=== PATIENT | male | born 1995 | race Caucasian/White ===

== ENCOUNTER → 2022-01-05 13:10 | Outpatient (CLI) | payer OTHER, SELFPAY ==
--- NOTE | 2022-01-05 | DI.MRI.S_ITS ---
PROCEDURE: MR KNEE LT WO CON INDICATIONS: Magnetic Resonance Imaging TECHNIQUE: Noncontrast sagittal PD fast spin echo and T2 fast spin echo with fat saturation, sagittal 3-D FLASH with fat saturation; coronal T1 spin echo and PD fast spin echo with fat saturation, and axial PD fast spin echo with fat saturation through the knee. COMPARISON: None. FINDINGS: Image quality: Excellent. Menisci: The medial and lateral menisci demonstrate normal morphology and internal signal. The meniscal root ligaments appear intact. Cruciate ligaments: The anterior and posterior cruciate ligaments appear intact. Medial structures: The medial collateral ligament appears intact. Visualized portions of the pes anserinus tendons appear normal. No abnormal bursal fluid. Wavy contour of the medial retinaculum, likely reflecting partial tear. Lateral structures: The lateral collateral ligament complex appears intact. The popliteus tendon appears normal. Iliotibial band appears normal. Anterior structures: The quadriceps and patellar tendons appear intact. Patellar alignment is normal. No femoral trochlear dysplasia or ventral trochlear prominence. No edema in the infrapatellar fat pad. Bones and cartilage: T2 hyperintense/T1 hypointense signal is seen in the lateral femoral condyle and medial patella, , likely reflecting transient dislocation of the patella. No distinct fracture is appreciated. The cartilage of the medial and lateral femorotibial compartments, as well as the patellofemoral compartment, appears normal in thickness. Joint space: Small knee joint fluid and Caputo's cyst. Normal appearing synovial plicae are incidentally noted. IMPRESSION: 1. Transient lateral dislocation of the patella. 2. Partial tear of the medial retinaculum. 3. Small joint effusion. Dictated by: Toño Michele M.D. on 01/05/2022 at 13:57 Approved by: Toño Michele M.D. on 01/05/2022 at 14:02
== END ==
PROVIDERS: Referring Provider Orthopaedic Surgery; Visit Provider Orthopaedic Surgery
DX: S83.015A Lateral dislocation of left patella, initial encounter (principal); S83.8X2A Sprain of other specified parts of left knee, initial encounter; M25.462 Effusion, left knee; M71.22 Synovial cyst of popliteal space [Baker], left knee; X58.XXXA Exposure to other specified factors, initial encounter
CPT/HCPCS: 73721

== ENCOUNTER 2023-12-28 10:02 | Inpatient (IN) | payer OTHER, SELFPAY ==
[2023-12-28] VITALS (27 sets, daily range): BP systolic 99–139; BP diastolic 42–72; PULSE 68–115; RESP 13–20; TEMP 36.1–39.1; O2SAT 90–100; BMI 29.3
[2023-12-28 10:19] LABS: Add Manual Diff / Slide Review NO; Basophils Absolute Auto 100 /uL (0-100); Basophils Percent Auto 0.4 % (0-2); Eosinophils Absolute Auto 100 /uL (0-450); Eosinophils Percent Auto 0.8 % (2-4); Hematocrit 30.7 % (41-53); Hemoglobin 9.2 g/dL (13.5-17.5); Lymphocytes Absolute Auto 1100 /uL (1100-4500); Lymphocytes Percent Auto 7.3 % (25-40); Mean Corpuscular Hemoglobin 17.3 PG (26-34); Mean Corpuscular Volume 57.6 fL (80-100); Monocytes Absolute Auto 1000 /uL (0-900); Monocytes Percent Auto 7.1 % (3-14); Neutrophils Absolute Auto 12400 /uL (1500-7000); Neutrophils Percent Auto 84.4 % (50-75); Platelet Count 334 X10^3/uL (150-400); Red Blood Cell Count 5.32 X10^6/uL (4.5-5.9); Red Cell Distribution Width 18.9 % (11.6-14.8); White Blood Cell Count 14.7 X10^3/uL (4.5-11.0)
--- NOTE | 2023-12-28 10:19 | ED.GIBLEED ---
HPI - GI Bleed General Chief complaint: GI Bleed Stated complaint: vomiting coffee ground sludge/ N/D Time Seen by Provider: 12/28/23 10:11 Source: patient and family Mode of arrival: Ambulatory History of Present Illness HPI Narrative: Patient is a 28-year-old male history of GERD on omeprazole daily presenting today with vomiting and diarrhea. He reports that 4 days ago he would quite right he had some abdominal discomfort this morning he woke up had multiple episodes of black stool along with vomiting coffee-ground like emesis. He does not drink alcohol and when he does it is maybe 1 drink a week he has not been taking a lot of ibuprofen. He feels some abdominal cramping and still feeling nauseous. No specific abdominal pain but some cramping feels a little lightheaded when standing Related Data Home Medications Medication Instructions Recorded Confirmed omeprazole 20 mg capsule,delayed 40 mg PO DAILY 12/28/23 12/28/23 release Allergies Allergy/AdvReac Type Severity Reaction Status Date / Time No Known Drug Allergies Allergy Verified 12/28/23 10:12 Patient History Social History Smoking Status: Current every day smoker Smoking Status: Current every day smoker tobacco type: vaping alcohol intake frequency: 0-2 drinks per day Substance Use Type: does not use Exam Initial Vital Signs Initial Vital Signs: Vital Signs Pulse Rate 91 H 12/28/23 10:06 Blood Pressure 139/72 12/28/23 10:06 Pulse Oximetry 100 12/28/23 10:06 GENERAL: Alert well-appearing 28-year-old male and in no acute distress. HEENT: Head atraumatic,EOMI, pupils reactive, face symmetric, moist mucous membranes CARDIOVASCULAR: Regular rate and rhythm without murmurs, rubs or gallops. RESPIRATORY: Breath sounds equal bilaterally, no wheezes rales or rhonchi. ABDOMEN: Soft, nontender. Normoactive bowel sounds all 4 quadrants. No guarding or rebound. RECTAL: Hemoccult-positive, no hemorrhoids, nontender EXTREMITIES: Normal range of motion, no clubbing or edema. Neurovascularly intact NEUROLOGICAL: Alert and oriented x4.Normal gait and speech. SKIN: Warm, dry, no laceration, no petechiae, no rashes or lesions. Course Orders Ordered: ED Orders 12/28/23 10:08 Complete Blood Count AUTO DIFF Stat Comprehensive Metabolic Panel Stat Lactate (Lactic Acid) Stat Lipase Stat PTT Partial Thromboplastin Leobardo Stat Prothrombin Time INR Stat 12/28/23 11:51 Education, smoking cessation ONGOING Acetaminophen (Acetaminophen 325 Mg Tablet) 650 mg PO Q6H PRN PRN Reason: Fever/Mild Pain (1-3) Naloxone HCl (Naloxone 0.4 Mg/Ml Vial) 0.2 mg IV Q2MIN PRN PRN Reason: Opiate Reversal Ondansetron HCl (Ondansetron 4 Mg/2 Ml Inj) 4 mg IV Q4HR PRN PRN Reason: nausea and vomiting Pantoprazole Sodium (Pantoprazole 40 Mg Vial) 40 mg IV BID MACRINA Discontinued Medications Ondansetron HCl (Ondansetron 4 Mg/2 Ml Inj) 4 mg IV NOW PRN PRN Reason: Nausea And Vomiting Last Admin: 12/28/23 10:23 Dose: 4 mg Documented By: PAT Ondansetron HCl (Ondansetron 4 Mg Odt) 4 mg SL NOW PRN PRN Reason: Nausea And Vomiting Pantoprazole Sodium (Pantoprazole 40 Mg Vial) 80 mg IV NOW ONE Stop: 12/28/23 10:13 Last Admin: 12/28/23 10:23 Dose: 80 mg Documented By: PAT Vital Signs Vital signs: Vital Signs - 8 hr 12/28/23 10:06 12/28/23 10:06 12/28/23 10:08 Temperature 98.6 F Pulse Rate 91 H 104 H Respiratory Rate 16 Blood Pressure 139/72 139/72 Pulse Oximetry 100 100 Oxygen Delivery Method Room Air 12/28/23 10:30 12/28/23 10:30 12/28/23 11:00 Temperature Pulse Rate 91 H Respiratory Rate 16 Blood Pressure 138/64 130/63 Pulse Oximetry 97 Oxygen Delivery Method Room Air 12/28/23 11:00 Temperature Pulse Rate 92 H Respiratory Rate 16 Blood Pressure Pulse Oximetry 97 Oxygen Delivery Method Room Air MDM - GI Bleed Lab Data 12/28/23 10:08 12/28/23 10:08 Labs: Lab Results 12/28/23 Range/Units 10:08 WBC 14.7 H (4.5-11.0) X10^3/uL RBC 5.32 (4.5-5.9) X10^6/uL Hgb 9.2 L (13.5-17.5) g/dL Hct 30.7 L (41-53) % MCV 57.6 L (80-100) fL MCH 17.3 L (26-34) PG MCHC 30.0 (30-36) % RDW 18.9 H (11.6-14.8) % Plt Count 334 (150-400) X10^3/uL Neut % (Auto) 84.4 H (50-75) % Lymph % (Auto) 7.3 L (25-40) % [place] % (Auto) 7.1 (3-14) % Eos % (Auto) 0.8 L (2-4) % Baso % (Auto) 0.4 (0-2) % Neut # (Auto) 13536 H (6842-4892) /uL Lymph # (Auto) 1100 (2417-8285) /uL [place] # (Auto) 1000 H (0-900) /uL Eos # (Auto) 100 (0-450) /uL Baso # (Auto) 100 (0-100) /uL RBC Morphology Not Reportable Poikilocytosis 1+ H Anisocytosis 2+ H Microcytosis 3+ H PT 12.6 H (9.4-12.5) SECONDS INR 1.1 (0.9-1.3) APTT 29 (25.1-36.5) SECONDS Sodium 142 (137-145) mmol/L Potassium 4.2 (3.4-5.1) mmol/L Chloride 109 H (98-107) mmol/L Carbon Dioxide 22 (22-32) mmol/L BUN 13 (9-20) mg/dL Creatinine 1.03 (0.66-1.25) mg/dL Estimated GFR > 60 (>60) mL/min BUN/Creatinine Ratio 12.6 (6-22) Glucose 111 H (70-100) mg/dL Lactate 1.5 (0.7-2.1) mmol/L Calcium 9.0 (8.4-10.2) mg/dL Total Bilirubin 0.5 (0.2-1.3) mg/dL AST 18 (17-59) IU/L ALT 20 (<50) IU/L Alkaline Phosphatase 88 (38-126) U/L Total Protein 8.2 (6.3-8.2) g/dL Albumin 4.6 (3.5-5.0) g/dL Globulin 3.6 (1.7-4.1) g/dL Albumin/Globulin Ratio 1.3 (1.0-2.8) Lipase 129 (23-300) U/L Point of Care Testing Stool Occult Blood Positive MDM Narrative Medical decision making narrative: Patient 28-year-old male has a history of acid reflux taking omeprazole daily presents today black stool and coffee-ground emesis. States that he is a little dizzy hemodynamically stable. He is guaiac positive. He denies taking NSAIDs or drinking alcohol. Blood work reveals hemoglobin of 9.2 hematocrit 30.7 electrolytes and SIN within limits No imaging was done Patient has likely bleeding ulcer guaiac-positive with symptomatic anemia. He was hemodynamically stable but mildly tachycardic. Given Protonix Zofran Dr. Reddy updated patient's symptoms test results agrees for scope, probably today, keep NPO recommend admit to medicine Dr. Kulkarni accepts Discharge Plan Departure Patient Disposition: Admitted as Observation Clinical Impression: Upper gastrointestinal hemorrhage, GERD (gastroesophageal reflux disease) Admit Date/Time: 12/28/23 11:25 Admit Provider: Alexis Kulkarni
[2023-12-28] MEDS: ONDANSETRON 4 MG/2 ML INJ IV ×2 (10:23→12:57)
[2023-12-28] MEDS: PANTOPRAZOLE 40 MG VIAL 80 MG IV (10:23)
[2023-12-28 10:28] LABS: INR 1.1 (0.9-1.3); Prothrombin Time 12.6 SECONDS (9.4-12.5)
[2023-12-28 10:31] LABS: PTT Partial Thromboplastin Tim 29 SECONDS (25.1-36.5)
[2023-12-28 10:32] LABS: Alanine Aminotransferase 20 IU/L (<50); Albumin 4.6 g/dL (3.5-5.0); Albumin Globulin Ratio 1.3 (1.0-2.8); Alkaline Phosphatase 88 U/L (38-126); Aspartate Aminotransferase 18 IU/L (17-59); BUN Creatinine Ratio 12.6 (6-22); Bilirubin Total 0.5 mg/dL (0.2-1.3); Blood Urea Nitrogen 13 mg/dL (9-20); Carbon Dioxide 22 mmol/L (22-32); Chloride 109 mmol/L (98-107); Estimated Glomerular Filt Rate > 60 mL/min (>60); Globulin 3.6 g/dL (1.7-4.1); Glucose 111 mg/dL (70-100); HEMOLYSIS < 15 (0-50); Potassium 4.2 mmol/L (3.4-5.1); Sodium 142 mmol/L (137-145); Total Protein 8.2 g/dL (6.3-8.2)
[2023-12-28 10:33] LABS: Anisocytosis 2+; Microcytosis 3+; Poikilocytosis 1+
[2023-12-28 10:49] LABS: Lactate (Lactic Acid) 1.5 mmol/L (0.7-2.1)
[2023-12-28 11:09] LABS: Lipase 129 U/L (23-300)
--- NOTE | 2023-12-28 13:10 | PC.NURSE ---
Sarita RN, PACU called for report. Gave report but asked that she call upstairs for updated report.
[2023-12-28 13:12] LABS: MRSA (Nasal) PCR Not Detected (Not Detect)
--- NOTE | 2023-12-28 13:46 | P.HP_ITS ---
History of Present Illness History of Present Illness Date Patient Seen: 12/28/23 Time Patient Seen: 16:57 Chief complaint: vomiting coffee ground sludge/ N/D Narrative: 28 year old male with PMH of GERD, prior EGD who presented with a couple days of diarrhea, followed by melena and dark emesis for the past day. History largely obtained from spouse and ER provider as patient seen after EGD. He did have a head cold recently and everyone had runny nose and nasal congestion for the past few days. Had a cough but nonproductive and no hemoptysis. He has been on omeprazole for 2 years, denies NSAID use or EtOH use. No other family has been sick like him. In the ER Hg was 9.2, baseline is unknown. Guaiac testing was positive. Surgery performed EGD which did not reveal a bleeding source. He was admitted for further observation of presumed GI bleeding. [facility] Medical History GERD (gastroesophageal reflux disease) Surgical History History of esophagogastroduodenoscopy (EGD) Social History household members: spouse, children and friend(s) Smoking Status: Current every day smoker alcohol intake: current Meds Home Medications and Allergies Home Medications Medication Instructions Recorded Confirmed Type omeprazole 20 mg capsule,delayed 40 mg PO DAILY 12/28/23 12/28/23 History release Allergies Allergy/AdvReac Type Severity Reaction Status Date / Time No Known Drug Allergies Allergy Verified 12/28/23 10:12 Review of Systems Review of Systems Narrative: All other systems reviewed with the patient and are negative unless otherwise stated. Exam Vital Signs (past 8 hours): - 12/28/23 10:06 12/28/23 10:06 12/28/23 10:08 Temperature 98.6 F Pulse Rate 91 H 104 H Respiratory Rate 16 Blood Pressure 139/72 139/72 Pulse Oximetry 100 100 Oxygen Delivery Method Room Air 12/28/23 10:30 12/28/23 10:30 12/28/23 11:00 Temperature Pulse Rate 91 H Respiratory Rate 16 Blood Pressure 138/64 130/63 Pulse Oximetry 97 Oxygen Delivery Method Room Air 12/28/23 11:00 12/28/23 11:54 12/28/23 11:54 Temperature 98.3 F Pulse Rate 92 H 68 Respiratory Rate 16 18 Blood Pressure 132/61 Pulse Oximetry 97 98 98 Oxygen Delivery Method Room Air Room Air 12/28/23 13:40 Temperature 97.7 F Pulse Rate 98 H Respiratory Rate 16 Blood Pressure 122/70 Pulse Oximetry 100 Oxygen Delivery Method Room Air Oxygen Delivery Method Room Air Narrative Exam Narrative: Gen: somnolent after surgery CV RRR No respiratory distress Abd: soft, non-distended Ext: no edema Objective Labs 12/28/23 10:08 12/28/23 10:08 Labs: Laboratory Results - last 24 hr 12/28/23 12/28/23 10:08 11:54 WBC 14.7 H RBC 5.32 Hgb 9.2 L Hct 30.7 L MCV 57.6 L MCH 17.3 L MCHC 30.0 RDW 18.9 H Plt Count 334 Neut % (Auto) 84.4 H Lymph % (Auto) 7.3 L [place] % (Auto) 7.1 Eos % (Auto) 0.8 L Baso % (Auto) 0.4 Neut # (Auto) 35094 H Lymph # (Auto) 1100 [place] # (Auto) 1000 H Eos # (Auto) 100 Baso # (Auto) 100 RBC Morphology Not Reportable Poikilocytosis 1+ H Anisocytosis 2+ H Microcytosis 3+ H PT 12.6 H INR 1.1 APTT 29 Sodium 142 Potassium 4.2 Chloride 109 H Carbon Dioxide 22 BUN 13 Creatinine 1.03 Estimated GFR > 60 BUN/Creatinine Ratio 12.6 Glucose 111 H Lactate 1.5 Calcium 9.0 Total Bilirubin 0.5 AST 18 ALT 20 Alkaline Phosphatase 88 Total Protein 8.2 Albumin 4.6 Globulin 3.6 Albumin/Globulin Ratio 1.3 Lipase 129 Nasal Screen MRSA (PCR) Not detected Assessment & Plan Assessment & Plan narrative: 1. Acute blood loss anemia with presumed GI bleeding - - EGD unremarkable per surgical service, appreciate their consultation. Discussed with them. If continued bleeding will consider prep for colonoscopy. - transfuse if Hg <7 or symptomatic. - Severely microcytic on labs, possible chronic GI bleed with recent symptoms being related to viral illness is a possibility. - zofran prn for nausea. Advance diet as tolerated. If diarrhea check a GI panel. - will continue IV PPI BID for now, despite negative EGD given presentation. Can likely change back to PO daily once more stable h/h - will check a reticulocyte count as well with severe microcytosis to make sure appropriate production of new RBC. Will also check an iron profile. 2. GERD - will continue IV PPI BID as noted above 3. Fever, rule out sepsis - presume viral illness given presenting history with upper respiratory symptoms. Fever 100.5 after EGD. - check UA and CXR, blood culture ordered. Patient has received appropriate IV fluids already. At this time suspect viral etiology for possible sepsis given presentation, and will give ceftriaxone after blood cultures drawn for possible Code: Full, surrogate is patient's spouse DVT: SCDs I have utilized all available immediate resources to obtain, update, or review the patient's current medications. Dispo: Admitted observation, probably will need to stay overnight. Depending on h/h trend may require inpatient care. Additional history obtained from discussion with ER provider, General surgeon, and spouse to contribute to the above history, assessment and plan. I have reviewed previous documentation, labs.
[2023-12-28] MEDS: LACTATED RINGERS 1,000 ML 100 ML IV ×2 (13:50→15:22)
--- NOTE | 2023-12-28 13:58 | PM.CN ---
History of Present Illness Consult details Date Patient Seen: 12/28/23 Time Patient Seen: 13:58 Chief complaint: vomiting coffee ground sludge/ N/D Narrative: Ivan is a 28-year-old man who presents with melena and hematemesis as of this morning. He did have an EGD in [place] a little over a year ago for GERD the does not believe anything was found. Meds Home Medications and Allergies Home Medications Medication Instructions Recorded Confirmed Type omeprazole 20 mg capsule,delayed 40 mg PO DAILY 12/28/23 12/28/23 History release Allergies Allergy/AdvReac Type Severity Reaction Status Date / Time No Known Drug Allergies Allergy Verified 12/28/23 10:12 Exam Vital Signs (past 8 hours): - 12/28/23 10:06 12/28/23 10:06 12/28/23 10:08 Temperature 98.6 F Pulse Rate 91 H 104 H Respiratory Rate 16 Blood Pressure 139/72 139/72 Pulse Oximetry 100 100 Oxygen Delivery Method Room Air 12/28/23 10:30 12/28/23 10:30 12/28/23 11:00 Temperature Pulse Rate 91 H Respiratory Rate 16 Blood Pressure 138/64 130/63 Pulse Oximetry 97 Oxygen Delivery Method Room Air 12/28/23 11:00 12/28/23 11:54 12/28/23 11:54 Temperature 98.3 F Pulse Rate 92 H 68 Respiratory Rate 16 18 Blood Pressure 132/61 Pulse Oximetry 97 98 98 Oxygen Delivery Method Room Air Room Air 12/28/23 13:40 Temperature 97.7 F Pulse Rate 98 H Respiratory Rate 16 Blood Pressure 122/70 Pulse Oximetry 100 Oxygen Delivery Method Room Air Oxygen Delivery Method Room Air Const Orientation: alert and awake Resp Effort & Inspection: normal respiratory effort Objective Labs 12/28/23 10:08 12/28/23 10:08 Labs: Laboratory Results - last 24 hr 12/28/23 12/28/23 10:08 11:54 WBC 14.7 H RBC 5.32 Hgb 9.2 L Hct 30.7 L MCV 57.6 L MCH 17.3 L MCHC 30.0 RDW 18.9 H Plt Count 334 Neut % (Auto) 84.4 H Lymph % (Auto) 7.3 L [place] % (Auto) 7.1 Eos % (Auto) 0.8 L Baso % (Auto) 0.4 Neut # (Auto) 13197 H Lymph # (Auto) 1100 [place] # (Auto) 1000 H Eos # (Auto) 100 Baso # (Auto) 100 RBC Morphology Not Reportable Poikilocytosis 1+ H Anisocytosis 2+ H Microcytosis 3+ H PT 12.6 H INR 1.1 APTT 29 Sodium 142 Potassium 4.2 Chloride 109 H Carbon Dioxide 22 BUN 13 Creatinine 1.03 Estimated GFR > 60 BUN/Creatinine Ratio 12.6 Glucose 111 H Lactate 1.5 Calcium 9.0 Total Bilirubin 0.5 AST 18 ALT 20 Alkaline Phosphatase 88 Total Protein 8.2 Albumin 4.6 Globulin 3.6 Albumin/Globulin Ratio 1.3 Lipase 129 Nasal Screen MRSA (PCR) Not detected PFSH Social History household members: spouse, children and friend(s) Tobacco & Substance Use Smoking Status: Current every day smoker alcohol intake: current Assessment & Plan Assessment and plan (1) Melena: Status: Acute Plan We reviewed the risks and benefits of esophagogastroduodenoscopy for melena and he would like to proceed.
--- NOTE | 2023-12-28 14:52 | PM.OP.EGD ---
Operative Date/Time/Diagnoses Date of procedure: 12/28/23 Time of procedure: 14:52 Pre-op diagnosis: Melena Post-op diagnosis: same Procedure & Clinicians Study performed: Esophagogastroduodenoscopy Same procedure as scheduled: Yes Surgeon: Pedro Burdick Procedure Notes Procedure in detail: Surgeon: Pedro Burdick MD Anesthesia: Adela Peña timeout was performed. A bite blocked was placed. The patient was positioned in the left lateral decubitus position. Anesthesia was administered. The endoscope was inserted through the bite block and passed through the esophagus and stomach and into the duodenum. The duodenal mucosa appeared normal. No abnormalities were seen. The scope was withdrawn into the duodenal bulb and no abnormalities were seen. The scope was withdrawn into the stomach. No ulcers or blood were seen. The rest of the stomach was normal. The scope was retroflexed and a small hiatal hernia was noted. The scope was withdrawn into the esophagus and no other abnormalities were seen. The remainder of the esophagus was normal. The scope was withdrawn. The patient was awakened and brought to recovery. Sedation time: 4 minutes Findings: Normal EGD Post-procedure Disposition: PACU
[2023-12-28] MEDS: PROCHLORPERAZINE 10 MG/2 ML VIAL IV (15:14)
--- NOTE | 2023-12-28 15:30 | SUR.PHASEI ---
Pt transported to the floor by Erick COVARRUBIAS in [facility]. Denied pain and nausea.
--- NOTE | 2023-12-28 15:47 | PC.NURSE ---
Patient brought up from PACU on stretcher and transferred into bed. Arousable but falls back to sleep. VSS. temp noted at 100.5. Call light within reach.
--- NOTE | 2023-12-28 17:04 | DI.RAD.S_ITS ---
PROCEDURE: XR CHEST 1V INDICATIONS: fever TECHNIQUE: One view of the chest was acquired. COMPARISON: None. FINDINGS: Surgical changes and devices: None. Lungs and pleura: Mildly low lung volumes bilaterally. Questionable patchy retrocardiac opacities. No pleural effusions or pneumothorax. Mediastinum: Mediastinal contours appear normal. Heart size is normal. Bones and chest wall: No suspicious bony lesions. Overlying soft tissues appear unremarkable. IMPRESSION: Mildly low lung volumes bilaterally. Patchy left basilar opacities may be related to atelectasis, aspiration, or pneumonia. Approved by: Killian Morales M.D. on 12/28/2023 at 18:00
[2023-12-28 17:28] LABS: Hematocrit 29.7 % (41-53); Hemoglobin 9.1 g/dL (13.5-17.5)
[2023-12-28 17:34] LABS: Reticulocyte Count, Percent 2.2 % (0.9-2.6)
--- NOTE | 2023-12-28 17:55 | PC.NURSE ---
Confirmed blood cultures were drawn, now able to start IV antibiotics as ordered
[2023-12-28] MEDS: cefTRIAXone 1,000 MG in SODIUM CHLORIDE 0.9% 100 ML 200 MG IV (17:56)
[2023-12-28 18:14] LABS: HEMOLYSIS < 15 (0-50); Iron 34 ug/dL (49-181)
[2023-12-28 18:15] LABS: Appearance Urine UA CLEAR; Bilirubin Urine UA NEGATIVE (NEGATIVE); Color Urine UA YELLOW; Glucose Urine UA NEGATIVE (Negative); Ketones Urine UA NEGATIVE (NEGATIVE); Leukocyte Esterase Urine UA NEGATIVE (NEGATIVE); Nitrite Urine UA NEGATIVE (Negative); Occult Blood Urine UA NEGATIVE (Negative); Protein Urine UA NEGATIVE (Negative); Urobilinogen Urine UA 0.2 E.U./dL (0.2); pH Urine UA 6.5 (4.5-8.0)
[2023-12-28 18:21] LABS: Bacteria Urine Occasional (0-1); RBC Urine None Seen (0-5/HPF); Squamous Epithelial Cell Urine 0-1 /HPF (0-5/HPF); Urine Volume 10mL (spun); WBC Urine 0-1/HPF (0-5/HPF)
[2023-12-28 18:22] LABS: Culture Indicated Urine Cult Not Indicated; Mucus Urine 1+ (Negative)
[2023-12-28 18:24] LABS: Percent Iron Saturation 8 % (20-50); Total Iron Binding Capacity 424 ug/dL (261-462); Transferrin 372 mg/dL (206-381)
[2023-12-28] MEDS: ACETAMINOPHEN 325 MG TABLET 650 MG PO (18:50)
--- NOTE | 2023-12-28 18:59 | PC.NURSE ---
Dr. Kulkarni notified of temp 102.4. Tylenol was given. Continue to monitor.
[2023-12-28] MEDS: SODIUM CHLORIDE 0.9% FLUSH 10 ML IV (20:33)
[2023-12-28] MEDS: PANTOPRAZOLE 40 MG VIAL IV (20:33)
[2023-12-29] VITALS (11 sets, daily range): BP systolic 91–131; BP diastolic 44–71; PULSE 39–115; RESP 16–18; TEMP 36.6–37.6; O2SAT 97–100
[2023-12-29 01:48] LABS: Adenovirus F 40/41 Not Detected (Not Detect); Astrovirus Not Detected (Not Detect); Campylobacter Not Detected (Not Detect); Clostridium difficile toxin AB Not Detected (Not Detect); Cryptosporidium Not Detected (Not Detect); Cyclospora cayetanensis Not Detected (Not Detect); Entamoeba histolytica Not Detected (Not Detect); Enteroaggregative E.coli Not Detected (Not Detect); Enteropathogenic E.coli Not Detected (Not Detect); Enterotoxigenic E.coli It/st Not Detected (Not Detect); Giardia lamblia Not Detected (Not Detect); Norovirus GI/GII Detected (Not Detect); Plesiomonsa shigelloides Not Detected (Not Detect); Rotavirus A Not Detected (Not Detect); Salmonella Not Detected (Not Detect); Sapovirus Not Detected (Not Detect); Shiga-like toxin-prod E.coli Not Detected (Not Detect); Shigella/Enteroinvasive E.coli Not Detected (Not Detect); Vibrio Not Detected (Not Detect); Vibrio cholerae Not Detected (Not Detect); Yersinia enterocolitica Not Detected (Not Detect)
[2023-12-29 05:13] LABS: Add Manual Diff / Slide Review NO; Basophils Absolute Auto 0 /uL (0-100); Basophils Percent Auto 0.4 % (0-2); Eosinophils Absolute Auto 0 /uL (0-450); Eosinophils Percent Auto 0.3 % (2-4); Hematocrit 25.6 % (41-53); Hemoglobin 7.9 g/dL (13.5-17.5); Lymphocytes Absolute Auto 1300 /uL (1100-4500); Mean Corpuscular HGB Conc 30.7 % (30-36); Mean Corpuscular Hemoglobin 17.6 PG (26-34); Mean Corpuscular Volume 57.2 fL (80-100); Monocytes Absolute Auto 600 /uL (0-900); Neutrophils Absolute Auto 5500 /uL (1500-7000); Neutrophils Percent Auto 74.3 % (50-75); Platelet Count 210 X10^3/uL (150-400); Red Blood Cell Count 4.47 X10^6/uL (4.5-5.9); Red Cell Distribution Width 18.3 % (11.6-14.8); White Blood Cell Count 7.4 X10^3/uL (4.5-11.0)
[2023-12-29 05:21] LABS: Alanine Aminotransferase 15 IU/L (<50); Albumin 3.6 g/dL (3.5-5.0); Albumin Globulin Ratio 1.2 (1.0-2.8); Alkaline Phosphatase 68 U/L (38-126); Aspartate Aminotransferase 18 IU/L (17-59); BUN Creatinine Ratio 7.3 (6-22); Bilirubin Total 0.8 mg/dL (0.2-1.3); Blood Urea Nitrogen 7 mg/dL (9-20); Carbon Dioxide 22 mmol/L (22-32); Chloride 109 mmol/L (98-107); Estimated Glomerular Filt Rate > 60 mL/min (>60); Globulin 2.9 g/dL (1.7-4.1); Glucose 97 mg/dL (70-100); HEMOLYSIS < 15 (0-50); Magnesium 1.6 mg/dL (1.6-2.3); Potassium 3.6 mmol/L (3.4-5.1); Sodium 138 mmol/L (137-145); Total Protein 6.5 g/dL (6.3-8.2)
[2023-12-29 05:44] LABS: Anisocytosis 1+
[2023-12-29 05:45] LABS: Microcytosis 3+
[2023-12-29 05:46] LABS: Hypochromasia 1+; Ovalocytes 1+
--- NOTE | 2023-12-29 06:25 | PC.NURSE ---
military communications specialist RN note pt resting quietly overnight, no c/o pain or nausea, stool sample collected, stool was loose and light brown in color, lab called after collection stating that is came back positive for norovirus but stated that it could be a false positive, pt afebrile, am labs drawn and decreased noted in H&H, distribution lineman notified
[2023-12-29 06:31] LABS: Free T4, Direct Thyroxine 1.24 ng/dL (0.78-2.19)
[2023-12-29] MEDS: SODIUM CHLORIDE 0.9% FLUSH 10 ML IV (07:46)
[2023-12-29] MEDS: PANTOPRAZOLE 40 MG VIAL IV (07:46)
[2023-12-29] MEDS: ACETAMINOPHEN 325 MG TABLET 650 MG PO (07:46)
[2023-12-29 11:46] LABS: Hemoglobin 7.7 g/dL (13.5-17.5)
--- NOTE | 2023-12-29 14:12 | CM.DANOTE ---
DCP Assessment Note Pt is a 28yo M here following n/v/d, vomiting coffee ground sludge. PCP None listed. Pt is with the [employer], [place] P[place] Sandra Adorno and self pay BOX TRUCK OWNER OPERATOR reviewed EMR. Pt lives in [place] with spouse. 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. Per chart review, pt's EGD results were normal. Per hospitalist in morning rounds, pt pos for norovirus but is eager to go home today. Per RN, blood count was low in afternoon. Getting transfusion at 1400. If in an hour pt's H&H is good, he will dc home. Is tolerating a normal diet. Anticipate no CM needs. BOX TRUCK OWNER OPERATOR met briefly with pt outside of doorway. Accompanied by spouse, Nadya at bedside. Report being eager to dc home. Report no CM/DCP needs. Plan: anticipate home later today vs tomorrow if colonoscopy need indicated. Spouse to drive. No CM needs identified. CM team will follow as needed. SITA Portillo Discharge Planning/Care Management CM Discharge Assessment Start: 12/29/23 14:10 Freq: Status: Active Protocol: Document 12/29/23 14:10 (Rec: 12/29/23 14:11 [id number]) Discharge Planning Assessment Assigned Shot Core Drill Operator Helper SITA Turner DPOA/Assigned Designee Name estefany [place] Contact Information [phone] Advance Directives? No History Provided By Patient Prior Living Arrangements House Household Members spouse,friend(s),children Type of transporation used prior to Drives own vehicle admit Independent with ADL's Yes Is patient alert and oriented? Yes Barriers to Discharge No Discharge Plan Home Transportation Arrangement spouse in POV Referrals Initiated None needed Whiteboard Updated in Patient Room with No name and ext. # of Shot Core Drill Operator Helper Comment did not enter room due to pos for Norovirus. Spoke with pt from doorway Review Status In Process Please Provide Date Initial DC 12/29/23 Assessment Was Performed Next Review Type Continued Stay Review
[2023-12-29] MEDS: NICOTINE 21 MG PATCH TOP (15:33)
[2023-12-29 17:52] LABS: Hematocrit 29.3 % (41-53)
--- NOTE | 2023-12-29 18:21 | PM.DS.1 ---
History of Present Illness History of Present Illness Date Patient Seen: 12/29/23 Chief complaint: vomiting coffee ground sludge/ N/D Narrative: 28 year old male with PMH of GERD, prior EGD who presented with a couple days of diarrhea, followed by melena and dark emesis for the past day. History largely obtained from spouse and ER provider as patient seen after EGD. He did have a head cold recently and everyone had runny nose and nasal congestion for the past few days. Had a cough but nonproductive and no hemoptysis. He has been on omeprazole for 2 years, denies NSAID use or EtOH use. No other family has been sick like him. In the ER Hg was 9.2, baseline is unknown. Guaiac testing was positive. Surgery performed EGD which did not reveal a bleeding source. He was admitted for further observation of presumed GI bleeding. Discharge Providers Provider Date of admission: 12/29/23 12:50 Discharge Date: 12/29/23 Primary care physician: Doctor Shi MD Consults: 12/28/23 11:49 Consult to Physician Routine Comment: Consulting Provider: Rosio Reddy Reason for consultation: GI bleed Has provider been notified: Yes Discharge provider: Alexis Kulkarni DO Summary Hospital Course Discharge Diagnosis: 1. Acute blood loss anemia with presumed GI bleeding - 2. GERD 3. Norovirus, sepsis ruled out Hospital Course: This is a 28 year old male who presented with abdominal pain/cramping, dark stools and hematemesis along with marked anemia. Initial Hg was around 9, downtrended to 7.7. EGD was performed which was negative. Shortly after admission patient had diarrhea and high fever, though his diarrhea was fairly watery. UA and CXR were unremarkable. GI panel showed norovirus. Supportive care, along with IV PPI was provided despite negative EGD for symptoms. He improved more quickly than expected. He was given 1U PRBC for symptomatic anemia on the morning of discharge, with improvement in Hg to 9.0 and much improvement in his symptoms. His MCV is very microcytic, iron panel showed iron deficiency, and he does have a strong history of colon cancer. Discussed with general surgery and referral was provided for outpatient colonoscopy. If negative recommend referral to hematology for further workup of his anemia as well. Chronic PPI use can inhibit iron absorption, so patient was recommended to reduce omeprazole to 20 mg daily from 40 mg due to negative EGD appearance during the admission. He could then, if no return of symptoms, trail stopping this medication. Risks and benefits of continued observation / management in the hospital compared to discharge home were discussed, and patient elected for discharge home. Time Spent with Patient Time spent: Greater than 30 minutes Exam Vital Signs (past 8 hours): - 12/29/23 12:00 12/29/23 13:51 12/29/23 14:06 Temperature 98.4 F 98.1 F 98.1 F Pulse Rate 91 H 99 H 98 H Respiratory Rate 16 18 16 Blood Pressure 112/71 122/67 122/60 Pulse Oximetry 99 Oxygen Flow Rate 0 12/29/23 15:40 12/29/23 16:00 Temperature 98 F 98.5 F Pulse Rate 88 85 Respiratory Rate 17 16 Blood Pressure 131/60 123/56 L Pulse Oximetry 97 Oxygen Flow Rate 0 Oxygen Delivery Method Room Air Oxygen Flow Rate 0 Narrative Exam Narrative: Gen: alert, no acute distress CV RRR Pulm CTA B/l Abd: soft, non-distended Ext: no edema Objective Labs 12/29/23 17:24 12/29/23 04:35 Labs: Laboratory Results - last 24 hr 12/28/23 12/28/23 12/28/23 10:08 17:30 18:05 WBC RBC Hgb Hct MCV MCH MCHC RDW Plt Count Neut % (Auto) Lymph % (Auto) Bartholomew % (Auto) Eos % (Auto) Baso % (Auto) Neut # (Auto) Lymph # (Auto) Bartholomew # (Auto) Eos # (Auto) Baso # (Auto) RBC Morphology Hypochromasia Anisocytosis Microcytosis Ovalocytes Sodium Potassium Chloride Carbon Dioxide BUN Creatinine Estimated GFR BUN/Creatinine Ratio Glucose Calcium Magnesium TIBC 424 % Saturation 8 L Transferrin 372 Total Bilirubin AST ALT Alkaline Phosphatase Total Protein Albumin Globulin Albumin/Globulin Ratio TSH Free T4 Urine RBC None seen Urine WBC 0-1/hpf Ur Squamous Epith Cells 0-1 /hpf Urine Bacteria Occasional (0-1) Urine Mucus 1+ H Ur Culture Indicated? Cult not indicated Vol Urine Centrifuged 10ml (spun) Stl C. cayetanensis PCR Stool Rotavirus (PCR) Stool Adenovirus (PCR) Stool Astrovirus (PCR) Stool Cryptosporidium PCR Stl E.coli Shiga Tox PCR St Sh/Enteroin Ecoli PCR Stl Enterotoxigenic E PCR Stool EPEC (PCR) Stl E. histolytica PCR Stool Giardia Lamblia PCR Stool Sapovirus (PCR) Stl P. shigelloides PCR St Y.enterocolitica PCR Stool Vibrio (PCR) Stl Vibrio cholerae PCR Stl Enteroaggr Ecoli PCR Stl Norovirus GI/GII PCR Campylobacter (PCR) C. difficile Tox (PCR) Salmonella (PCR) Blood Type O Positive Antibody Screen Negative Crossmatch See Detail 12/28/23 12/29/23 12/29/23 22:20 04:35 11:35 WBC 7.4 RBC 4.47 L Hgb 7.9 L 7.7 L Hct 25.6 L 25.0 L MCV 57.2 L MCH 17.6 L MCHC 30.7 RDW 18.3 H Plt Count 210 Neut % (Auto) 74.3 Lymph % (Auto) 17.0 L Bartholomew % (Auto) 8.0 Eos % (Auto) 0.3 L Baso % (Auto) 0.4 Neut # (Auto) 5500 Lymph # (Auto) 1300 Bartholomew # (Auto) 600 Eos # (Auto) 0 Baso # (Auto) 0 RBC Morphology See below Hypochromasia 1+ H Anisocytosis 1+ H Microcytosis 3+ H Ovalocytes 1+ H Sodium 138 Potassium 3.6 Chloride 109 H Carbon Dioxide 22 BUN 7 L Creatinine 0.96 Estimated GFR > 60 BUN/Creatinine Ratio 7.3 Glucose 97 Calcium 8.0 L Magnesium 1.6 TIBC % Saturation Transferrin Total Bilirubin 0.8 AST 18 ALT 15 Alkaline Phosphatase 68 Total Protein 6.5 Albumin 3.6 Globulin 2.9 Albumin/Globulin Ratio 1.2 TSH 0.40 L Free T4 1.24 Urine RBC Urine WBC Ur Squamous Epith Cells Urine Bacteria Urine Mucus Ur Culture Indicated? Vol Urine Centrifuged Stl C. cayetanensis PCR Not detected Stool Rotavirus (PCR) Not detected Stool Adenovirus (PCR) Not detected Stool Astrovirus (PCR) Not detected Stool Cryptosporidium PCR Not detected Stl E.coli Shiga Tox PCR Not detected St Sh/Enteroin Ecoli PCR Not detected Stl Enterotoxigenic E PCR Not detected Stool EPEC (PCR) Not detected Stl E. histolytica PCR Not detected Stool Giardia Lamblia PCR Not detected Stool Sapovirus (PCR) Not detected Stl P. shigelloides PCR Not detected St Y.enterocolitica PCR Not detected Stool Vibrio (PCR) Not detected Stl Vibrio cholerae PCR Not detected Stl Enteroaggr Ecoli PCR Not detected Stl Norovirus GI/GII PCR Detected Campylobacter (PCR) Not detected C. difficile Tox (PCR) Not detected Salmonella (PCR) Not detected Blood Type Antibody Screen Crossmatch 12/29/23 17:24 WBC RBC Hgb 9.0 L Hct 29.3 L MCV MCH MCHC RDW Plt Count Neut % (Auto) Lymph % (Auto) Bartholomew % (Auto) Eos % (Auto) Baso % (Auto) Neut # (Auto) Lymph # (Auto) Bartholomew # (Auto) Eos # (Auto) Baso # (Auto) RBC Morphology Hypochromasia Anisocytosis Microcytosis Ovalocytes Sodium Potassium Chloride Carbon Dioxide BUN Creatinine Estimated GFR BUN/Creatinine Ratio Glucose Calcium Magnesium TIBC % Saturation Transferrin Total Bilirubin AST ALT Alkaline Phosphatase Total Protein Albumin Globulin Albumin/Globulin Ratio TSH Free T4 Urine RBC Urine WBC Ur Squamous Epith Cells Urine Bacteria Urine Mucus Ur Culture Indicated? Vol Urine Centrifuged Stl C. cayetanensis PCR Stool Rotavirus (PCR) Stool Adenovirus (PCR) Stool Astrovirus (PCR) Stool Cryptosporidium PCR Stl E.coli Shiga Tox PCR St Sh/Enteroin Ecoli PCR Stl Enterotoxigenic E PCR Stool EPEC (PCR) Stl E. histolytica PCR Stool Giardia Lamblia PCR Stool Sapovirus (PCR) Stl P. shigelloides PCR St Y.enterocolitica PCR Stool Vibrio (PCR) Stl Vibrio cholerae PCR Stl Enteroaggr Ecoli PCR Stl Norovirus GI/GII PCR Campylobacter (PCR) C. difficile Tox (PCR) Salmonella (PCR) Blood Type Antibody Screen Crossmatch [facility] Medical History (Updated 12/29/23 @ 18:27 by Alexis Kulkarni DO) Iron deficiency anemia GERD (gastroesophageal reflux disease) Surgical History History of esophagogastroduodenoscopy (EGD) Social History household members: spouse, children and friend(s) Smoking Status: Current every day smoker alcohol intake: current Discharge Plan Discharge Plan Patient Disposition: Home Provider Discharge Comment: You were admitted to the hospital with abdominal pain, GI bleeding. You were found to be severely anemic, from iron deficiency. EGD was negative. Recommend colonoscopy, referral was sent to the surgery clinic. Isolation / work restriction is to continue for Norovirus for 48 hours after resolution of vomiting and diarrhea. I think you can return to taking 20 mg of omeprazole daily instead of 40. You can consider stopping it completely after about a week to see if no continued symptoms as well as this can reduce ability for your body to absorb iron too. Please try to follow up with your PCP in a week or two to repeat labs and review admission and plan of care. Discharge orders & Medications Prescriptions: New ferrous sulfate 325 mg (65 mg iron) tablet 325 mg PO Q OTHER DAY 60 Days Qty: 30 0RF Changed omeprazole 20 mg capsule,delayed release(DR/EC) 20 mg PO DAILY Qty: 30 0RF No Action peg 3350-electrolytes [Golytely] 236-22.74-6.74 -5.86 gram recon soln 240 ml PO Q10M Qty: 4000 0RF Rx Instructions: Take as directed by Physician. Follow up/Referrals: Doctor Osullivan MD [Primary Care Provider] - Other Ambulatory Orders: Referral General Surgery (Schedule) Timeframe: 2 Weeks Facility: [facility] - Location: [facility] Ordered By: Alexis Kulkarni Diet/Activity/Treatments Diet: Diet as Tolerated and Regular Activity: As tolerated, no restrictions. Visit Report/Discharge Packet Instructions: DI for Iron Deficiency Anemia-Adult Stand Alone Forms: Patient Portal/API, Stroke Signs & Symptoms Discharge Data Primary Care Provider: Doctor Shi
== END 2023-12-29 19:31 | disposition home or self-care (01) | DRG 378 ==
LOC: ED 11:25 → AC 11:26 → ICU 11:32
PROVIDERS: Surgery; Admitting Provider Internal Medicine; Emergency Provider Emergency Medicine; Referring Provider Emergency Medicine; Visit Provider Internal Medicine
PROC: 0DJ08ZZ Inspection of Upper Intestinal Tract, Via Natural or Artificial Opening Endoscopic (ICD-10-PCS; CPT 43235; principal; 2023-12-28 14:00)
DX: K92.2 Gastrointestinal hemorrhage, unspecified (principal); A08.11 Acute gastroenteropathy due to Norwalk agent; D62 Acute posthemorrhagic anemia; K21.9 Gastro-esophageal reflux disease without esophagitis; D50.9 Iron deficiency anemia, unspecified
CPT/HCPCS: 36415; 36430; 43235; 71045; 80053; 81001; 82272; 83540; 83550; 83605; 83690; 83735; 84439; 84443; 85014; 85018; 85025; 85045; 85610; 85730; 86850; 86900; 86901; 87040; 87507; 87797; 96374; 96375; 99231; 99284; G0378; P9016; C9113; J0330; J0696; J0780; J2405; J2704; J3010

== ENCOUNTER 2024-01-10 13:26 | Day surgery (SDC) | payer OTHER, SELFPAY ==
[2023-12-28 11:54] VITALS: BMI 29.3
[2024-01-10] VITALS (8 sets, daily range): BP systolic 105–125; BP diastolic 56–77; PULSE 75–87; RESP 14–16; TEMP 36.1–36.4; O2SAT 99–100
[2024-01-10] MEDS: LACTATED RINGERS 1,000 ML 42 ML IV (13:47)
--- NOTE | 2024-01-10 13:54 | PM.PREOP ---
Pre-operative Note COVID-19 COVID-19 status: Not tested Interval Note History & Physical reviewed/Exam performed by Physician: Yes Changes to H&P: No ASA Class (for procedural sedation): II
--- NOTE | 2024-01-10 14:26 | PM.OP.COLON ---
Operative Date/Time/Diagnoses Date of procedure: 01/10/24 Time of procedure: 14:26 Pre-op diagnosis: Anemia Post-op diagnosis: same Procedure & Clinicians Study performed: Colonoscopy Same procedure as scheduled: Yes Surgeon: Pedro Burdick Procedure Notes Procedure in detail: Surgeon: Pedro Burdick MD Anesthesia: Ivonne Henderson CRNA Procedure: The patient was brought to the endoscopy suite, placed in left lateral decubitus position. The patient was connected to monitoring devices. A time-out was performed. Sedation was administered. Once the patient was adequately sedated, a digital rectal exam was performed and was normal. The scope was then inserted and advanced to the cecum where the appendiceal orifice was identified and photographed. The scope was then slowly withdrawn over greater than 6 minutes. The mucosa was thoroughly inspected. No abnormalities were found. The scope was retroflexed in the rectum. No abnormalities were seen. The scope was straightened and removed. The patient was awakened and brought to recovery. Scope withdrawal time: 9 minutes Sedation time: 16 minutes EBL: 0 Findings: Normal colon Post-procedure Disposition: PACU
[2024-01-10] MEDS: ONDANSETRON 4 MG/2 ML INJ (14:30)
== END 2024-01-10 15:31 | disposition home or self-care (01) ==
PROVIDERS: Referring Provider Surgery; Visit Provider Surgery
PROC: 0DJD8ZZ Inspection of Lower Intestinal Tract, Via Natural or Artificial Opening Endoscopic (ICD-10-PCS; CPT 45378; principal; 2024-01-10 14:15)
DX: D62 Acute posthemorrhagic anemia (principal); K92.1 Melena; K92.0 Hematemesis; K21.9 Gastro-esophageal reflux disease without esophagitis
CPT/HCPCS: 45378; J2405; J2704

== ENCOUNTER 2024-01-27 05:54 | Observation (INO) | payer OTHER, SELFPAY ==
[2023-12-28 11:54] VITALS: BMI 29.3
[2024-01-27] VITALS (22 sets, daily range): BP systolic 90–126; BP diastolic 40–77; PULSE 76–99; RESP 11–16; TEMP 36.4–36.9; O2SAT 94–100; BMI 29.5
--- NOTE | 2024-01-27 | PATH_ITS ---
[facility] Accession Number: [id number] No. of containers..02 Tissue . 01 Material submitted: . PART A: duodenum - DUODENUM PART B: gastrointestinal site - ANTRUM . 01 Diagnosis: A. DUODENUM, BIOPSY: Duodenal mucosa with increased surface intraepithelial lymphocytes and mild villous blunting, see comments. Negative for dysplasia, or malignancy. - B. GASTRIC ANTRUM, BIOPSY: Mild chronic inactive gastritis, gastric antral mucosa. Negative for helicobacter organisms by immunostain. Negative for intestinal metaplasia, dysplasia, and malignancy. [facility] 02/02/2024 1554 Local . 01 Comment: PART A. Increased intraepithelial lymphocytes with mild villous blunting is associated with celiac enteropathy, however, other considerations include but are not limited to NSAID use, other medication reactions, and infection. Clinical and serologic correlation is recommended. . 01 Electronically signed: . Bradly Lucia MD, Pathologist NPI- [id number] . 01 Gross description: . A. Received in formalin with two identifiers and duodenum biopsy, are two wynn soft tissue fragments 0.3 cm each in greatest dimension. Submitted in cassette A1. B. Received in formalin with two identifiers and antrum biopsy, are two wynn soft tissue fragments 0.2 to 0.3 cm in greatest dimension. Submitted in cassette B1. ([id number]) /YENNY 01/30/2024 2221 Local . 01 Pathologist provided ICD-10: K92.1 . 01 CPT . 956394, [id number], [id number] Specimen Comment: A courtesy copy of this report has been sent to [phone] Performed at: 01 [facility] [address] [place] [address] [address] [facility], [place], [place] [id number] MD Wolf Magaña MD Phone: [phone]
--- NOTE | 2024-01-27 06:02 | DI.CT.S_ITS ---
PROCEDURE: CT ABDOMEN PELVIS W CON INDICATIONS: MELENA, COFFEE EMESIS, RECENT NEGATIVE EGD/COLONOSCOPY TECHNIQUE: After the administration of intravenous contrast, axial sections acquired from the lung bases to the pubic symphysis. Coronal and sagittal reformats were performed. For radiation dose reduction, the following was used: automated exposure control, adjustment of mA and/or kV according to patient size. COMPARISON: None. FINDINGS: Image quality: Evaluation for active gastrointestinal hemorrhage is markedly limited on single phase imaging. Lower Chest: Patchy consolidation in the lingula. Moderate hiatal hernia ABDOMEN: Liver: No solid mass. Gallbladder: No radiopaque gallstones or wall thickening. Biliary ducts: No biliary dilation. Pancreas: No ductal dilation. Spleen: Size is within normal limits. Adrenal Glands: No adrenal nodules. Kidneys and Ureters: No hydronephrosis. No solid mass. No complex renal cystic lesion which requires follow up. Left interpolar nonobstructive nephrolith measuring 2 mm (11/23). Stomach and Bowel: Stomach is decompressed, limiting evaluation and appears grossly normal. Small and large bowel is normal in caliber, without obstruction. Appendix is not well seen; however, no acute inflammatory signs to suggest acute appendicitis. Colonic diverticulosis, without diverticulitis. Distal sigmoid colon/rectum is decompressed which limits evaluation. Peritoneum: No abnormal intraperitoneal fluid. No free air. Ventral Wall: Tiny fat containing umbilical hernia. Abdominal Nodes: No retroperitoneal or mesenteric adenopathy by size criteria. Vessels: Aorta and inferior vena cava are normal in size. PELVIS: Pelvic Organs: Unremarkable. Bladder: No bladder wall thickening, accounting for underdistention. Pelvic Nodes: No enlarged lymph nodes. Miscellaneous: No inguinal hernias are seen. Bones: No aggressive osseous abnormality. No acute fracture. Sclerotic lesion in the right iliac bone with narrow zone of transition compatible with a benign bone island. IMPRESSION: 1. Evaluation for active gastrointestinal hemorrhage is markedly imited on single phase imaging. Within these limitations, no acute pathology in the abdomen or pelvis. If there is high clinical suspicion for active bleed, recommend GI consultation and/or a multiphase CTA abdomen and pelvis (noncontrast, arterial and venous). 2. Small and large bowel is normal in caliber, without obstruction. Colonic diverticulosis, without diverticulitis. 3. Appendix is not well seen; however, no secondary signs of acute appendicitis. 4. Patchy consolidation in the lingula which may reflect atelectasis, aspiration and/or pneumonia. 5. Left interpolar nonobstructive nephrolith measuring 2 mm. I agree with the preliminary report. Dictated by: Solomon Pérez M.D. on 01/27/2024 at 8:42 Approved by: Solomon Pérez M.D. on 01/27/2024 at 8:55
--- NOTE | 2024-01-27 06:04 | ED.GIBLEED ---
HPI - GI Bleed <Fatmata Tracy MD - Last Filed: 01/27/24 06:58> General Chief complaint: GI Bleed Stated complaint: internal bleeding Time Seen by Provider: 01/27/24 05:55 History of Present Illness HPI Narrative: Patient presents from home by private vehicle for coffee-ground emesis and dark liquid stools this morning. Patient was admitted to the hospital from 12/27-12/28. Hemoglobin was monitored and patient was seen by General surgery, and EGD was performed on 12/27. Scope was notable for a small hiatal hernia but no active bleeding was found. On 01/09 patient underwent colonoscopy, which was again unremarkable. Per general surgery notes dated 12/27 patient had a endoscopy at [facility] 1 year prior that was normal per patient report Patient states that he has been taking iron supplements and has been on 20 mg of omeprazole. He denies alcohol or NSAID use since his EGD. Related Data Home Medications Medication Instructions Recorded Confirmed ferrous sulfate 325 mg (65 mg 325 mg PO DAILY 01/10/24 01/10/24 iron) tablet Previous Rx's Medication Instructions Recorded omeprazole 20 mg capsule,delayed 20 mg PO DAILY #30 caps 12/29/23 release Allergies Allergy/AdvReac Type Severity Reaction Status Date / Time No Known Drug Allergies Allergy Verified 01/10/24 13:37 Review of Systems <Fatmata Trayc MD - Last Filed: 01/27/24 06:58> Review of Systems Narrative: See HPI Patient History <Fatmata Tracy MD - Last Filed: 01/27/24 06:58> Medical History Iron deficiency anemia GERD (gastroesophageal reflux disease) Surgical History History of esophagogastroduodenoscopy (EGD) Social History household members: spouse, children and friend(s) Smoking Status: Current every day smoker alcohol intake: current Smoking Status: Current every day smoker tobacco type: vaping alcohol intake frequency: holidays/special occasions only Substance Use Type: does not use Exam <Fatmata Tracy MD - Last Filed: 01/27/24 06:58> Narrative Exam Narrative: Const: Awake, alert, no acute distress, nontoxic appearing Cardiac: regular rate, regular rhythm RESP: unlabored, clear bilaterally, no wheezing GI: Soft, nontender, nondistended, no rebound, no guarding Skin: Warm, Dry, intact, no rashes Neuro: AO x3, CN II-XII grossly intact, moves all extremities Initial Vital Signs Initial Vital Signs: Vital Signs Pulse Rate 91 H 01/27/24 05:58 Pulse Oximetry 100 01/27/24 05:58 <Fatmata Matos DO - Last Filed: 01/27/24 13:35> Initial Vital Signs Initial Vital Signs: Vital Signs Pulse Rate 91 H 01/27/24 05:58 Pulse Oximetry 100 01/27/24 05:58 Course <Fatmata Tracy MD - Last Filed: 01/27/24 06:58> Orders Ordered: ED Orders 01/27/24 06:02 CT abdomen pelvis w con Stat 01/27/24 06:35 CBC Auto Diff [Complete Blood Count AUTO DIFF] Stat CMP [Comprehensive Metabolic Panel] Stat Type and Screen Stat Sodium Chloride (Normal Saline 0.9%) 1,000 mls @ 125 mls/hr IV CONT MACRINA Last Infusion: 01/27/24 12:23 Dose: 0 mls/hr Documented By: Admin: 01/27/24 07:50 Dose: 125 mls/hr Documented By: CHAD Ondansetron HCl (Ondansetron 4 Mg/2 Ml Inj) 4 mg IV Q6HR PRN PRN Reason: Nausea And Vomiting Discontinued Medications Nicotine (Nicotine 21 Mg Patch) 21 mg TOP NOW ONE Stop: 01/27/24 07:39 Last Admin: 01/27/24 07:54 Dose: 21 mg Documented By: CHAD Pantoprazole Sodium (Pantoprazole 40 Mg Vial) 80 mg IV NOW ONE Stop: 01/27/24 07:21 Last Admin: 01/27/24 07:50 Dose: 80 mg Documented By: CHAD Vital Signs Vital signs: Vital Signs - 8 hr 01/27/24 05:58 01/27/24 06:00 01/27/24 06:00 Temperature Pulse Rate 91 H 88 Respiratory Rate Blood Pressure 126/76 Pulse Oximetry 100 99 Oxygen Delivery Method 01/27/24 06:03 01/27/24 06:30 01/27/24 07:00 Temperature 97.7 F Pulse Rate 86 81 80 Respiratory Rate 16 Blood Pressure 126/76 Pulse Oximetry 99 99 99 Oxygen Delivery Method Room Air 01/27/24 07:30 Temperature Pulse Rate 82 Respiratory Rate Blood Pressure Pulse Oximetry 98 Oxygen Delivery Method <Fatmata Matos DO - Last Filed: 01/27/24 13:35> Orders Ordered: ED Orders 01/27/24 06:02 CT abdomen pelvis w con Stat 01/27/24 06:35 CBC Auto Diff [Complete Blood Count AUTO DIFF] Stat CMP [Comprehensive Metabolic Panel] Stat Type and Screen Stat Sodium Chloride (Normal Saline 0.9%) 1,000 mls @ 125 mls/hr IV CONT MACRINA Last Infusion: 01/27/24 12:23 Dose: 0 mls/hr Documented By: Admin: 01/27/24 07:50 Dose: 125 mls/hr Documented By: CHAD Ondansetron HCl (Ondansetron 4 Mg/2 Ml Inj) 4 mg IV Q6HR PRN PRN Reason: Nausea And Vomiting Discontinued Medications Nicotine (Nicotine 21 Mg Patch) 21 mg TOP NOW ONE Stop: 01/27/24 07:39 Last Admin: 01/27/24 07:54 Dose: 21 mg Documented By: CHAD Pantoprazole Sodium (Pantoprazole 40 Mg Vial) 80 mg IV NOW ONE Stop: 01/27/24 07:21 Last Admin: 01/27/24 07:50 Dose: 80 mg Documented By: CHAD Vital Signs Vital signs: Vital Signs - 8 hr 01/27/24 05:58 01/27/24 06:00 01/27/24 06:00 Temperature Pulse Rate 91 H 88 Respiratory Rate Blood Pressure 126/76 Pulse Oximetry 100 99 Oxygen Delivery Method 01/27/24 06:03 01/27/24 06:30 01/27/24 07:00 Temperature 97.7 F Pulse Rate 86 81 80 Respiratory Rate 16 Blood Pressure 126/76 Pulse Oximetry 99 99 99 Oxygen Delivery Method Room Air 01/27/24 07:30 Temperature Pulse Rate 82 Respiratory Rate Blood Pressure Pulse Oximetry 98 Oxygen Delivery Method MDM - GI Bleed <Fatmata Tracy MD - Last Filed: 01/27/24 06:58> Lab Data 01/27/24 06:35 01/27/24 06:35 Labs: Lab Results 01/27/24 Range/Units 06:35 WBC 8.0 (4.5-11.0) X10^3/uL RBC 4.90 (4.5-5.9) X10^6/uL Hgb 10.1 L (13.5-17.5) g/dL Hct 32.2 L (41-53) % MCV 65.8 L (80-100) fL MCH 20.5 L (26-34) PG MCHC 31.2 (30-36) % RDW 26.7 H (11.6-14.8) % Plt Count 285 (150-400) X10^3/uL Neut % (Auto) 58.1 (50-75) % Lymph % (Auto) 29.1 (25-40) % [place] % (Auto) 8.6 (3-14) % Eos % (Auto) 3.6 (2-4) % Baso % (Auto) 0.6 (0-2) % Neut # (Auto) 4700 (8832-6351) /uL Lymph # (Auto) 2300 (2080-2064) /uL [place] # (Auto) 700 (0-900) /uL Eos # (Auto) 300 (0-450) /uL Baso # (Auto) 0 (0-100) /uL RBC Morphology Not Reportable Dimorphic RBCs Present Sodium 138 (137-145) mmol/L Potassium 4.0 (3.4-5.1) mmol/L Chloride 107 (98-107) mmol/L Carbon Dioxide 26 (22-32) mmol/L BUN 14 (9-20) mg/dL Creatinine 1.05 (0.66-1.25) mg/dL Estimated GFR > 60 (>60) mL/min BUN/Creatinine Ratio 13.3 (6-22) Glucose 93 (70-100) mg/dL Calcium 8.6 (8.4-10.2) mg/dL Total Bilirubin 0.4 (0.2-1.3) mg/dL AST 17 (17-59) IU/L ALT 19 (<50) IU/L Alkaline Phosphatase 90 (38-126) U/L Total Protein 7.1 (6.3-8.2) g/dL Albumin 4.3 (3.5-5.0) g/dL Globulin 2.8 (1.7-4.1) g/dL Albumin/Globulin Ratio 1.5 (1.0-2.8) Blood Type O Positive Antibody Screen Negative MDM Narrative Medical decision making narrative: Reports of coffee-ground emesis and melena this morning. Recent negative EGD and colonoscopy. Patient was also on iron supplements which could lead to dark stools and false positive guaiac study. He was hemodynamically stable. Plan to repeat labs and once laboratory work is back we will consult General surgery. With repeated episodes and normal recent scopes we will order a CT abdomen and pelvis with contrast to assess for any other cause of possible anemia or bleeding CT scan read as no acute findings, no colitis, diverticulitis, obstruction, or other acute abnormalities. Laboratory work is pending. Care of patient is to be signed out to oncoming ED physician. Final disposition pending laboratory work and their evaluation and judgement <Fatmata Matos DO - Last Filed: 01/27/24 13:35> Lab Data Labs: Lab Results 01/27/24 Range/Units 06:35 WBC 8.0 (4.5-11.0) X10^3/uL RBC 4.90 (4.5-5.9) X10^6/uL Hgb 10.1 L (13.5-17.5) g/dL Hct 32.2 L (41-53) % MCV 65.8 L (80-100) fL MCH 20.5 L (26-34) PG MCHC 31.2 (30-36) % RDW 26.7 H (11.6-14.8) % Plt Count 285 (150-400) X10^3/uL Neut % (Auto) 58.1 (50-75) % Lymph % (Auto) 29.1 (25-40) % [place] % (Auto) 8.6 (3-14) % Eos % (Auto) 3.6 (2-4) % Baso % (Auto) 0.6 (0-2) % Neut # (Auto) 4700 (3600-1243) /uL Lymph # (Auto) 2300 (2429-1200) /uL [place] # (Auto) 700 (0-900) /uL Eos # (Auto) 300 (0-450) /uL Baso # (Auto) 0 (0-100) /uL RBC Morphology Not Reportable Dimorphic RBCs Present Sodium 138 (137-145) mmol/L Potassium 4.0 (3.4-5.1) mmol/L Chloride 107 (98-107) mmol/L Carbon Dioxide 26 (22-32) mmol/L BUN 14 (9-20) mg/dL Creatinine 1.05 (0.66-1.25) mg/dL Estimated GFR > 60 (>60) mL/min BUN/Creatinine Ratio 13.3 (6-22) Glucose 93 (70-100) mg/dL Calcium 8.6 (8.4-10.2) mg/dL Total Bilirubin 0.4 (0.2-1.3) mg/dL AST 17 (17-59) IU/L ALT 19 (<50) IU/L Alkaline Phosphatase 90 (38-126) U/L Total Protein 7.1 (6.3-8.2) g/dL Albumin 4.3 (3.5-5.0) g/dL Globulin 2.8 (1.7-4.1) g/dL Albumin/Globulin Ratio 1.5 (1.0-2.8) Blood Type O Positive Antibody Screen Negative MDM Narrative Medical decision making narrative: Reports of coffee-ground emesis and melena this morning. Recent negative EGD and colonoscopy. Patient was also on iron supplements which could lead to dark stools and false positive guaiac study. He was hemodynamically stable. Plan to repeat labs and once laboratory work is back we will consult General surgery. With repeated episodes and normal recent scopes we will order a CT abdomen and pelvis with contrast to assess for any other cause of possible anemia or bleeding CT scan read as no acute findings, no colitis, diverticulitis, obstruction, or other acute abnormalities. Laboratory work is pending. Care of patient is to be signed out to oncoming ED physician. Final disposition pending laboratory work and their evaluation and judgement 01/27/2024 Dr. Matos: Patient signed out to myself. Patient's past visits, labs, CT imaging were reviewed. Patient was seen and evaluated by myself. Patient notes that he started having vomiting that was clear initially followed by some diarrhea with black stools and then started to throw up coffee-ground this morning. He does have symptoms such as lightheadedness. He is on currently 20 mg of his PPI after has been recommended decreased from 40. He was found to be positive for Norovirus during his stay. Patient's is trending upwards overall from 7-10. He notes that he has been in the 10 range since he has been discharge. He did receive 1 unit of packed red blood cells during his hospital stay and was given PPI. He has microcytic anemia. Normal platelets of 285. Electrolytes are normal with a sodium 138 potassium of 4 creatinine of 1.05 BUN of [address] abdomen pelvis with contrast shows no evidence of diverticulitis, bowel obstruction or obstructive uropathy no appendix. Lingular infiltrate, nonobstructing 2 mm left mid pole intrarenal calculus. Small left hiatal hernia. Patient able agreeable to stay. With his recent GI bleed and receiving 1 unit packed red cells felt appropriate to keep him although his hemoglobin is stable vitals are stable. Patient did ask if you can have nicotine patch. Last intake was at 8:00 p.m. last night Spoke with Dr. Burdick, observation for gi bleed. Patient possibly be scope today depends on schedule. Has received 80 mg of pantoprazole. Discharge Plan Departure Patient Disposition: Admitted as Observation Clinical Impression: GI bleed, Symptomatic anemia Admit Date/Time: 01/27/24 07:42 Admit Provider: Pedro Burdick
[2024-01-27 06:46] LABS: Add Manual Diff / Slide Review NO; Basophils Absolute Auto 0 /uL (0-100); Basophils Percent Auto 0.6 % (0-2); Eosinophils Absolute Auto 300 /uL (0-450); Eosinophils Percent Auto 3.6 % (2-4); Hematocrit 32.2 % (41-53); Hemoglobin 10.1 g/dL (13.5-17.5); Lymphocytes Absolute Auto 2300 /uL (1100-4500); Lymphocytes Percent Auto 29.1 % (25-40); Mean Corpuscular HGB Conc 31.2 % (30-36); Mean Corpuscular Hemoglobin 20.5 PG (26-34); Mean Corpuscular Volume 65.8 fL (80-100); Monocytes Absolute Auto 700 /uL (0-900); Monocytes Percent Auto 8.6 % (3-14); Neutrophils Absolute Auto 4700 /uL (1500-7000); Neutrophils Percent Auto 58.1 % (50-75); Platelet Count 285 X10^3/uL (150-400); Red Cell Distribution Width 26.7 % (11.6-14.8)
[2024-01-27 06:58] LABS: Alanine Aminotransferase 19 IU/L (<50); Albumin 4.3 g/dL (3.5-5.0); Albumin Globulin Ratio 1.5 (1.0-2.8); Alkaline Phosphatase 90 U/L (38-126); Aspartate Aminotransferase 17 IU/L (17-59); BUN Creatinine Ratio 13.3 (6-22); Bilirubin Total 0.4 mg/dL (0.2-1.3); Blood Urea Nitrogen 14 mg/dL (9-20); Calcium 8.6 mg/dL (8.4-10.2); Carbon Dioxide 26 mmol/L (22-32); Chloride 107 mmol/L (98-107); Estimated Glomerular Filt Rate > 60 mL/min (>60); Globulin 2.8 g/dL (1.7-4.1); Glucose 93 mg/dL (70-100); HEMOLYSIS < 15 (0-50); Sodium 138 mmol/L (137-145); Total Protein 7.1 g/dL (6.3-8.2)
[2024-01-27 06:59] LABS: Dimorphic RBC PRESENT
[2024-01-27] MEDS: PANTOPRAZOLE 40 MG VIAL 80 MG IV (07:50)
[2024-01-27] MEDS: SODIUM CHLORIDE 0.9% 1,000 ML 125 ML IV (07:50)
[2024-01-27] MEDS: NICOTINE 21 MG PATCH TOP (07:54)
--- NOTE | 2024-01-27 11:25 | PC.NURSE ---
Pt sitting up in bed. A&Ox4. Denies pain at this time. C/o mild nausea. Declines nausea medication.
--- NOTE | 2024-01-27 12:43 | PM.HP.1 ---
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 His hemoglobin did drop down to a low of 7.7 at that time. He was seen here last month for the same symptoms and had an EGD followed by a an outpatient colonoscopy neither of which demonstrated any obvious cause for bleeding. He returned to the ER today with more hematemesis and melena starting early this morning. [facility] Medical History Iron deficiency anemia GERD (gastroesophageal reflux disease) Surgical History History of esophagogastroduodenoscopy (EGD) Social History household members: spouse, children and friend(s) Smoking Status: Current every day smoker alcohol intake: current Meds Home Medications and Allergies Home Medications Medication Instructions Recorded Confirmed Type omeprazole 20 mg capsule,delayed 20 mg PO DAILY #30 caps 12/29/23 01/10/24 Rx release ferrous sulfate 325 mg (65 mg 325 mg PO DAILY 01/10/24 01/10/24 History iron) tablet Allergies Allergy/AdvReac Type Severity Reaction Status Date / Time No Known Drug Allergies Allergy Verified 01/10/24 13:37 Exam Vital Signs (past 8 hours): - 01/27/24 05:58 01/27/24 06:00 01/27/24 06:00 Temperature Pulse Rate 91 H 88 Respiratory Rate Blood Pressure 126/76 Pulse Oximetry 100 99 Oxygen Delivery Method 01/27/24 06:03 01/27/24 06:30 01/27/24 07:00 Temperature 97.7 F Pulse Rate 86 81 80 Respiratory Rate 16 Blood Pressure 126/76 Pulse Oximetry 99 99 99 Oxygen Delivery Method Room Air 01/27/24 07:30 01/27/24 08:00 01/27/24 08:30 Temperature Pulse Rate 82 77 77 Respiratory Rate Blood Pressure Pulse Oximetry 98 99 98 Oxygen Delivery Method 01/27/24 09:00 01/27/24 09:30 01/27/24 10:00 Temperature Pulse Rate 76 81 85 Respiratory Rate Blood Pressure Pulse Oximetry 98 97 98 Oxygen Delivery Method 01/27/24 10:30 01/27/24 11:00 01/27/24 11:30 Temperature Pulse Rate 88 89 91 H Respiratory Rate Blood Pressure 120/75 Pulse Oximetry 97 98 96 Oxygen Delivery Method 01/27/24 12:19 Temperature 97.5 F L Pulse Rate 80 Respiratory Rate 15 Blood Pressure 125/74 Pulse Oximetry 100 Oxygen Delivery Method Room Air Oxygen Delivery Method Room Air Const General: No acute distress Resp Effort & Inspection: normal respiratory effort Objective Labs 01/27/24 06:35 01/27/24 06:35 Labs: Laboratory Results - last 24 hr 01/27/24 06:35 WBC 8.0 RBC 4.90 Hgb 10.1 L Hct 32.2 L MCV 65.8 L MCH 20.5 L MCHC 31.2 RDW 26.7 H Plt Count 285 Neut % (Auto) 58.1 Lymph % (Auto) 29.1 [place] % (Auto) 8.6 Eos % (Auto) 3.6 Baso % (Auto) 0.6 Neut # (Auto) 4700 Lymph # (Auto) 2300 [place] # (Auto) 700 Eos # (Auto) 300 Baso # (Auto) 0 RBC Morphology Not Reportable Dimorphic RBCs Present Sodium 138 Potassium 4.0 Chloride 107 Carbon Dioxide 26 BUN 14 Creatinine 1.05 Estimated GFR > 60 BUN/Creatinine Ratio 13.3 Glucose 93 Calcium 8.6 Total Bilirubin 0.4 AST 17 ALT 19 Alkaline Phosphatase 90 Total Protein 7.1 Albumin 4.3 Globulin 2.8 Albumin/Globulin Ratio 1.5 Blood Type O Positive Antibody Screen Negative Assessment & Plan Assessment and plan (1) Melena: Status: Acute Plan I recommend we repeat the esophagogastroduodenoscopy today as he is currently NPO. If no source of bleeding is found I would refer him to a [facility] where can have either a PillCam or some other form of endoscopy to evaluate the rest of the small bowel. We reviewed the risks and benefits of esophagogastroduodenoscopy and he would like to proceed.
--- NOTE | 2024-01-27 13:31 | PM.OP.EGD ---
Operative Date/Time/Diagnoses Date of procedure: 01/27/24 Time of procedure: 13:31 Pre-op diagnosis: Melena and hematemesis Post-op diagnosis: same Procedure & Clinicians Study performed: Esophagogastroduodenoscopy Same procedure as scheduled: Yes Surgeon: Pedro Burdick Procedure Notes Procedure in detail: Surgeon: Pedro Burdick MD Anesthesia: Tamica Patel CRNA A timeout was performed. A bite blocked was placed. The patient was positioned in the left lateral decubitus position. Anesthesia was administered. The endoscope was inserted through the bite block and passed through the esophagus and stomach and into the duodenum. The duodenal mucosa appeared normal. Random biopsies were taken. The scope was withdrawn into the stomach. No antritis or gastritis was noted but biopsies were taken from the antrum. The rest of the stomach was normal. The scope was retroflexed and a moderate to large hiatal hernia was noted. There did appear to be some inflamed mucosa at the GE junction, possibly Valeria-Hope tear or a Frankie's ulcer related to the hiatal hernia that may have been a source of recent bleeding. No active bleeding was noted. The remainder of the esophagus was normal. The scope was withdrawn. The patient was awakened and brought to recovery. Sedation time: 5 minutes Findings: Moderate hiatal hernia with inflamed mucosa near the GE junction Post-procedure Disposition: PACU
[2024-01-27] MEDS: ONDANSETRON 4 MG/2 ML INJ IV (13:41)
[2024-01-27] MEDS: LACTATED RINGERS 1,000 ML 1000 ML IV (13:41)
== END 2024-01-27 14:36 | disposition home or self-care (01) ==
LOC: ED 07:41 → AC 07:43
PROVIDERS: Emergency Medicine; Admitting Provider Surgery; Emergency Provider Emergency Medicine; Referring Provider Emergency Medicine; Visit Provider Surgery
PROC: 0DJ08ZZ Inspection of Upper Intestinal Tract, Via Natural or Artificial Opening Endoscopic (ICD-10-PCS; CPT 43235; principal; 2024-01-27 13:00)
DX: K92.0 Hematemesis (principal); K92.1 Melena; K44.9 Diaphragmatic hernia without obstruction or gangrene; K20.90 Esophagitis, unspecified without bleeding
CPT/HCPCS: 43239; 36415; 74177; 80053; 85025; 86850; 86900; 86901; 96361; 96374; 96375; 99283; 99284; G0378; C9113; J2405; J2704; Q9967

== ENCOUNTER → 2024-02-08 09:48 | Outpatient (CLI) | payer OTHER, SELFPAY ==
[2023-12-28 11:54] VITALS: BMI 29.3
--- NOTE | 2024-02-08 09:49 | DI.RAD.S_ITS ---
PROCEDURE: FL BARIUM SWALLOW INDICATIONS: hiatal hernia COMPARISON: [facility], CT, CT ABDOMEN PELVIS W CON, 01/27/2024, 6:12. FINDINGS: Function: There is normal esophageal peristalsis. There is severe gastroesophageal reflux. There is normal transit of a calibrated barium tablet through the esophagus into the stomach. Morphology: There is a moderate-sized sliding hiatal hernia. Air-contrast images demonstrate normal mucosal morphology. Single contrast views show no esophageal strictures, extrinsic mass effects, or diverticula. Limited images of the stomach and duodenum demonstrate normal appearance. IMPRESSION: 1. Moderate-sized hiatal hernia. 2. Severe gastroesophageal reflux. Dictated by: Pietro Lux M.D. on 02/08/2024 at 16:04 Approved by: Pietro Lux M.D. on 02/08/2024 at 16:07
== END ==
LOC: RAD 09:49
PROVIDERS: Referring Provider Surgery; Visit Provider Surgery
DX: K44.9 Diaphragmatic hernia without obstruction or gangrene (principal); K21.9 Gastro-esophageal reflux disease without esophagitis; D64.9 Anemia, unspecified
CPT/HCPCS: 74220

== ENCOUNTER 2024-03-10 13:09 | Emergency (ER) | payer OTHER, SELFPAY ==
[2023-12-28 11:54] VITALS: BMI 29.3
[2024-03-10 13:17] VITALS: BP 143/67; PULSE 114; RESP 18; TEMP 38.1; O2SAT 98; BMI 28.5
--- NOTE | 2024-03-10 13:21 | DI.RAD.S_ITS ---
PROCEDURE: XR CHEST 2V INDICATIONS: SOB, cough TECHNIQUE: 2 views of the chest were acquired. COMPARISON: [facility], CR, XR CHEST 1V, 12/28/2023, 17:05. FINDINGS: Surgical changes and devices: None. Lungs and pleura: Lungs are clear on the right but in the perihilar region of the left midlung there appears to be mild alveolar infiltration consistent with mild or early pneumonia. No pleural effusions or pneumothorax. Mediastinum: Mediastinal contours are normal. Heart size is normal. Bones and chest wall: No suspicious bony abnormalities. Soft tissues appear unremarkable. IMPRESSION: Left midlung mild or early pneumonia, likely within the superior segment left lower lobe. Dictated by: Aryan Paulino M.D. on 03/10/2024 at 13:36 Approved by: Aryan Paulino M.D. on 03/10/2024 at 13:37
--- NOTE | 2024-03-10 13:21 | ED_ITS ---
HPI - General Adult General Chief complaint: Fever Stated complaint: fever 103 Time Seen by Provider: 03/10/24 13:12 Source: patient Mode of arrival: Ambulatory History of Present Illness HPI narrative: 28-year-old male smoker with noncontributory chronic medical history presents with his significant other and a chief complaint of fever as high as 103, shaking chills, headache, sore throat hacking cough with sputum production and body aches for the past few days. He states that about 1 week ago he had similar symptoms that resolved. He denies exposure to other ill persons. He denies any neck pain or chest pain. He denies abdominal pain dysuria, frequency or urgency. He feels fatigued, dizzy, weak and lightheaded Related Data Home Medications Medication Instructions Recorded Confirmed ferrous sulfate 325 mg (65 mg 325 mg PO DAILY 01/10/24 02/14/24 iron) tablet Previous Rx's Medication Instructions Recorded omeprazole 20 mg capsule,delayed 20 mg PO DAILY #30 caps 12/29/23 release amoxicillin 500 mg capsule 1,000 mg (2 x 500 mg) PO Q8H 5 03/10/24 days #30 caps Allergies Allergy/AdvReac Type Severity Reaction Status Date / Time No Known Drug Allergies Allergy Verified 03/10/24 13:21 Review of Systems Review of Systems Narrative: GENERAL: See HPI HEENT: See HPI RESPIRATORY: See HPI CARDIOVASCULAR: Denies chest pain, palpitations, orthopnea, edema, GASTROINTESTINAL: Denies nausea, vomiting, abdominal pain, diarrhea, constipation, melena. : Denies dysuria, frequency, incontinence, hematuria, urinary retention. MUSCULOSKELETAL: denies weakness, joint pain, or bony pain SKIN: Denies rash, skin lesions, or other NEUROLOGIC: Denies weakness, headache, numbness, change in speech, confusion, seizures, incoordination. PSYCHIATRIC: No concerning psychosocial issues. 12 point review of systems is negative except for those stated above Patient History Medical History Iron deficiency anemia GERD (gastroesophageal reflux disease) Surgical History History of esophagogastroduodenoscopy (EGD) Social History household members: spouse, children and friend(s) Smoking Status: Current every day smoker alcohol intake: current Smoking Status: Current every day smoker tobacco type: vaping alcohol intake frequency: holidays/special occasions only Substance Use Type: does not use Exam Narrative Exam Narrative: GENERAL: [28] year old patient appears stated age. Well-developed patient, in mild distress. HEAD: Atraumatic. Normocephalic. EYES: Pupils equal round and reactive. Extraocular motions intact. No scleral icterus. No injection or drainage. ENT: Nose without bleeding, purulent drainage. Throat without erythema, tonsillar hypertrophy or exudate. Airway patent. Clear postnasal drainage NECK: Trachea midline. Non tender CARDIOVASCULAR: Tachycardic but regular rhythm without murmurs, gallops, or rubs. RESPIRATORY: Clear to auscultation. Breath sounds equal bilaterally. No wheezes, rales, or rhonchi. GASTROINTESTINAL: Abdomen soft, non-tender, nondistended. EXTREMITIES: No edema or joint tenderness. BACK: Nontender without deformity or crepitance. No flank tenderness. NEURO: AOx3. SKIN: No rash or erythema of visible areas Initial Vital Signs Initial Vital Signs: Vital Signs Temperature 100.6 F H 03/10/24 13:17 Pulse Rate 114 H 03/10/24 13:17 Respiratory Rate 18 03/10/24 13:17 Blood Pressure 143/67 H 03/10/24 13:17 Pulse Oximetry 98 03/10/24 13:17 Oxygen Delivery Method Room Air 03/10/24 13:17 Course Orders Ordered: ED Orders 03/10/24 13:21 XR chest 2V Stat 03/10/24 13:28 Covid-19 + FLU A/B + RSV - PCR Stat 03/10/24 13:45 Complete Blood Count AUTO DIFF Stat Comprehensive Metabolic Panel Stat Lactate (Lactic Acid) Stat Magnesium Stat 03/10/24 14:14 Blood Culture Stat Discontinued Medications Lactated Ringer's (Lactated Ringers) 1,000 mls @ 1,000 mls/hr IV BOLUS ONE Stop: 03/10/24 14:19 Last Infusion: 03/10/24 14:22 Dose: Infused Documented By: Admin: 03/10/24 13:32 Dose: 1,000 mls/hr Documented By: ROXY Ceftriaxone Sodium 2,000 mg/ (Sodium Chloride) 100 mls @ 200 mls/hr IV NOW ONE Stop: 03/10/24 13:54 Last Admin: 03/10/24 14:18 Dose: 200 mls/hr Documented By: ROXY Ketorolac Tromethamine (Ketorolac 30 Mg/Ml Vial) 15 mg IV NOW ONE Stop: 03/10/24 13:21 Last Admin: 03/10/24 13:32 Dose: 15 mg Documented By: ROXY Ondansetron HCl (Ondansetron 4 Mg/2 Ml Inj) 4 mg IV NOW ONE Stop: 03/10/24 13:43 Last Admin: 03/10/24 13:49 Dose: 4 mg Documented By: SB Vital Signs Vital signs: Vital Signs - 8 hr 03/10/24 13:17 03/10/24 14:24 03/10/24 14:30 Temperature 100.6 F H Pulse Rate 114 H 91 H 91 H Respiratory Rate 18 16 16 Blood Pressure 143/67 H 120/64 125/65 Pulse Oximetry 98 98 Oxygen Delivery Method Room Air Room Air Medical Decision Making Lab Data 03/10/24 13:45 03/10/24 13:45 Labs: Lab Results 03/10/24 03/10/24 Range/Units 13:28 13:45 WBC 6.5 (4.5-11.0) X10^3/uL RBC 5.13 (4.5-5.9) X10^6/uL Hgb 11.4 L (13.5-17.5) g/dL Hct 35.0 L (41-53) % MCV 68.2 L (80-100) fL MCH 22.2 L (26-34) PG MCHC 32.6 (30-36) % RDW 19.9 H (11.6-14.8) % Plt Count 300 (150-400) X10^3/uL Neut % (Auto) 76.2 H (50-75) % Lymph % (Auto) 10.7 L (25-40) % Bonner % (Auto) 11.6 (3-14) % Eos % (Auto) 0.6 L (2-4) % Baso % (Auto) 0.9 (0-2) % Neut # (Auto) 5000 (2571-0123) /uL Lymph # (Auto) 700 L (8587-9827) /uL Bonner # (Auto) 800 (0-900) /uL Eos # (Auto) 0 (0-450) /uL Baso # (Auto) 100 (0-100) /uL RBC Morphology See below Microcytosis 1+ H Sodium 139 (137-145) mmol/L Potassium 4.1 (3.4-5.1) mmol/L Chloride 108 H (98-107) mmol/L Carbon Dioxide 22 (22-32) mmol/L BUN 8 L (9-20) mg/dL Creatinine 1.11 (0.66-1.25) mg/dL Estimated GFR > 60 (>60) mL/min BUN/Creatinine Ratio 7.2 (6-22) Glucose 100 (70-100) mg/dL Lactate 1.6 (0.7-2.1) mmol/L Calcium 9.0 (8.4-10.2) mg/dL Magnesium 2.1 (1.6-2.3) mg/dL Total Bilirubin 0.5 (0.2-1.3) mg/dL AST 20 (17-59) IU/L ALT 18 (<50) IU/L Alkaline Phosphatase 83 (38-126) U/L Total Protein 7.7 (6.3-8.2) g/dL Albumin 4.6 (3.5-5.0) g/dL Globulin 3.1 (1.7-4.1) g/dL Albumin/Globulin Ratio 1.5 (1.0-2.8) SARS-CoV-2 (PCR) Negative (Negative) Influenza A (RT-PCR) Flu a negative (NEGATIVE) Influenza B (RT-PCR) Flu b negative (NEGATIVE) RSV (PCR) Negative (Negative) MDM Narrative Medical decision making narrative: CC: 28-year-old male with widespread symptoms along with fever and shaking chills Complicating co-morbidities: Smoker, no history of IV drug abuse Data collected from: Patient Medical records reviewed: Prior notes reviewed in our EMR, relatively recent hospitalization for symptomatic GI bleed Differential considered, but not limited to: Flu versus COVID versus RSV versus pneumonia versus UTI versus other Exam documented above, pertinent findings include: Clearly feeling unwell, tachycardic but regular, no labored breathing, no abnormal lung sounds, abdomen soft and nontender, no midline back pain, no meningeal signs Lab Test results independently reviewed as above. Pertinent findings: No leukocytosis or left shift, lactate within normal limits. Primary electrolytes and renal function within normal limits. Imaging studies independently reviewed: Chest x-ray notes left lower lobe pneumonia MIPS Elements: N/A Treatments: Patient given fluids, Toradol and Zofran Re-evaluations: Heart rate improved to the 80s and 90s, fever improve, patient feeling much better after above-stated therapies Discussion: Patient with fever, body aches and productive cough presents without evidence of significant respiratory distress, use of accessory muscles or hypoxemia. Broad screening labs including cultures, lactate, fluids and IV antibiotics administered. Respiratory panel obtained. Disposition: see below, along with detailed discharge instructions that have been reviewed with patient as well as indications for ED re-evaluation and additional outpatient follow up Discharge Plan Departure Patient Disposition: Home Clinical Impression: Left lower lobe pneumonia Qualifiers: Pneumonia type: due to unspecified organism Qualified Code(s): J18.9 - Pneumonia, unspecified organism Instructions: DI for Pneumonia -- Adult Activity Restrictions/Additional Instructions: *You have been diagnosed with [left lower lobe pneumonia] *What to do: *Please continue to take your regular medications as directed. [ x] New medication prescriptions sent to your pharmacy: [ [facility]] [ ] New medication written as a paper prescription [ ] No new medications given *Please follow up with your primary care provider in 2-3 days, call for an appointment. Let them know you were seen in the Emergency Department and that we ask that you be seen in follow up. We will electronically transmit a record of today's note if your PCP is in our system *If you do not have a primary care provider please contact the [facility] Resource line at [phone]. They will ask some questions about your medical history and help get you set up with a doctor in the community. *Return to Emergency Department if you should have any new, worsening or concerning symptoms, such as [fever greater than 101 F, shaking chills, worsening pain, persistent vomiting or other bothersome symptoms] Prescriptions: New amoxicillin 500 mg capsule 1,000 mg PO Q8H 5 Days Qty: 30 0RF No Action omeprazole 20 mg capsule,delayed release(DR/EC) 20 mg PO DAILY Qty: 30 0RF ferrous sulfate 325 mg (65 mg iron) tablet 325 mg PO DAILY Referrals: ProviderDari [Primary Care Provider] - Stand Alone Forms: Patient Portal/API, Work Release Note
[2024-03-10] MEDS: KETOROLAC 30 MG/ML VIAL 15 MG IV (13:32)
[2024-03-10] MEDS: LACTATED RINGERS 1,000 ML 1000 ML IV (13:32)
[2024-03-10] MEDS: ONDANSETRON 4 MG/2 ML INJ IV (13:49)
[2024-03-10 14:04] LABS: Add Manual Diff / Slide Review NO; Basophils Absolute Auto 100 /uL (0-100); Basophils Percent Auto 0.9 % (0-2); Eosinophils Absolute Auto 0 /uL (0-450); Eosinophils Percent Auto 0.6 % (2-4); Hemoglobin 11.4 g/dL (13.5-17.5); Lymphocytes Absolute Auto 700 /uL (1100-4500); Lymphocytes Percent Auto 10.7 % (25-40); Mean Corpuscular HGB Conc 32.6 % (30-36); Mean Corpuscular Hemoglobin 22.2 PG (26-34); Mean Corpuscular Volume 68.2 fL (80-100); Monocytes Absolute Auto 800 /uL (0-900); Monocytes Percent Auto 11.6 % (3-14); Neutrophils Absolute Auto 5000 /uL (1500-7000); Neutrophils Percent Auto 76.2 % (50-75); Platelet Count 300 X10^3/uL (150-400); Red Blood Cell Count 5.13 X10^6/uL (4.5-5.9); Red Cell Distribution Width 19.9 % (11.6-14.8); White Blood Cell Count 6.5 X10^3/uL (4.5-11.0)
[2024-03-10 14:08] LABS: Lactate (Lactic Acid) 1.6 mmol/L (0.7-2.1)
[2024-03-10 14:10] LABS: Alanine Aminotransferase 18 IU/L (<50); Albumin 4.6 g/dL (3.5-5.0); Albumin Globulin Ratio 1.5 (1.0-2.8); Alkaline Phosphatase 83 U/L (38-126); Aspartate Aminotransferase 20 IU/L (17-59); BUN Creatinine Ratio 7.2 (6-22); Bilirubin Total 0.5 mg/dL (0.2-1.3); Blood Urea Nitrogen 8 mg/dL (9-20); Carbon Dioxide 22 mmol/L (22-32); Chloride 108 mmol/L (98-107); Estimated Glomerular Filt Rate > 60 mL/min (>60); Globulin 3.1 g/dL (1.7-4.1); Glucose 100 mg/dL (70-100); HEMOLYSIS < 15 (0-50); Magnesium 2.1 mg/dL (1.6-2.3); Potassium 4.1 mmol/L (3.4-5.1); Sodium 139 mmol/L (137-145); Total Protein 7.7 g/dL (6.3-8.2)
[2024-03-10] MEDS: cefTRIAXone 2,000 MG in SODIUM CHLORIDE 0.9% 100 ML 200 MG IV (14:18)
[2024-03-10 14:24] VITALS: BP 120/64; PULSE 91; RESP 16; O2SAT 98
[2024-03-10 14:24] LABS: Influenza A - CEPHEID Flu A NEGATIVE (NEGATIVE); Influenza B - CEPHEID Flu B NEGATIVE (NEGATIVE); Respiratory Syncytial Virus Negative (Negative)
[2024-03-10 14:24] LABS: Microcytosis 1+
[2024-03-10 14:30] VITALS: BP 125/65; PULSE 91; RESP 16
[2024-03-10 14:32] LABS: COVID-19 CEPHEID 4-PLEX PCR Negative (Negative)
[2024-03-10 14:51] VITALS: TEMP 37.6
== END 2024-03-10 14:51 | disposition home or self-care (01) ==
PROVIDERS: Emergency Provider Emergency Medicine
DX: J18.9 Pneumonia, unspecified organism (principal); Z20.822 Contact with and (suspected) exposure to COVID-19
CPT/HCPCS: 0241U; 36415; 71046; 80053; 83605; 83735; 85025; 87040; 96361; 96365; 96375; 99284; J0696; J1885; J2405

== ENCOUNTER 2024-07-05 20:31 | Emergency (ER) | payer OTHER, SELFPAY ==
[2023-12-28 11:54] VITALS: BMI 29.3
[2024-07-05] VITALS (9 sets, daily range): BP systolic 115–137; BP diastolic 78–87; PULSE 67–76; RESP 18; TEMP 36.9; O2SAT 96–100; BMI 25.7
--- NOTE | 2024-07-05 20:43 | ED_ITS ---
HPI - Abdominal Pain General Chief Complaint: Back Pain/Injury Stated Complaint: left lower back px Time Seen by Provider: 07/05/24 20:43 Source: patient, RN notes reviewed and old records reviewed Mode of arrival: Ambulatory Limitations: no limitations History of Present Illness HPI narrative: 28-year-old male history of hiatal hernia repair, prior kidney stones with complaint of sudden onset left flank pain radiating towards the front. Denies fevers. Has had some nausea and some vomiting. States bowel movements have ranged between normal and loose since his surgery but no sudden changes today. No black or bloody stools. Little bit of dysuria but no urgency frequency or other changes has not appreciate any hematuria. Patient states he is passed kidney stones in the past has felt similar. Has not had any prior interventions for kidney stones. He took ibuprofen, oxycodone and gabapentin earlier today which was not very helpful. States hiatal hernia repair as his only prior surgery. Denies any drug allergies. Vapes tobacco, no regular alcohol, no recreational drugs. Related Data Home Medications Medication Instructions Recorded Confirmed ferrous sulfate 325 mg (65 mg 325 mg PO DAILY 01/10/24 02/14/24 iron) tablet Previous Rx's Medication Instructions Recorded omeprazole 20 mg capsule,delayed 20 mg PO DAILY #30 caps 12/29/23 release oxycodone 5 mg tablet 5 mg PO Q6H PRN pain #10 tabs 07/05/24 tamsulosin 0.4 mg capsule (Flomax) 0.4 mg PO DAILY #7 caps 07/05/24 Allergies Allergy/AdvReac Type Severity Reaction Status Date / Time No Known Drug Allergies Allergy Verified 03/10/24 13:21 Review of Systems Review of Systems ROS Unobtainable: All systems reviewed & are unremarkable except as noted in HPI and below Patient History Medical History Iron deficiency anemia GERD (gastroesophageal reflux disease) Surgical History History of esophagogastroduodenoscopy (EGD) Social History household members: spouse, children and friend(s) Smoking Status: Current every day smoker alcohol intake: current Smoking Status: Current every day smoker tobacco type: vaping alcohol intake frequency: holidays/special occasions only Substance Use Type: does not use Exam Narrative Exam Narrative: GENERAL: Alert and oriented x three, male in moderate distress. HEENT: Head normocephalic, atraumatic, EOMI, pupils reactive, face symmetric, moist mucous membranes NECK: Supple, full range of motion CARDIOVASCULAR: Regular rate and rhythm without murmurs, rubs or gallops. RESPIRATORY: Breath sounds equal bilaterally, no wheezes rales or rhonchi. ABDOMEN: Soft, patient does have some left lower quadrant tenderness. Normoactive bowel sounds all 4 quadrants. No guarding or rebound, rigidity, no mass, no rash or skin changes. : No CVA tenderness bilaterally. EXTREMITIES: Normal range of motion, no clubbing or edema. Neurovascularly intact NEUROLOGICAL: Cranial nerves II through XII grossly intact. Moving all extremities SKIN: Warm, dry, no petechiae, no rashes or lesions. Initial Vital Signs Initial Vital Signs: Vital Signs Temperature 98.4 F 07/05/24 20:34 Pulse Rate 72 07/05/24 20:34 Respiratory Rate 18 07/05/24 20:34 Blood Pressure 137/85 07/05/24 20:34 Pulse Oximetry 100 07/05/24 20:34 Oxygen Delivery Method Room Air 07/05/24 20:34 Course Orders Ordered: ED Orders 07/05/24 20:40 Urine Culture Stat Urine Microscopic Stat 07/05/24 20:48 CBC Auto Diff [Complete Blood Count AUTO DIFF] Stat CMP [Comprehensive Metabolic Panel] Stat Lipase Stat 07/05/24 21:16 CT kidney ureter bladder (KUB) Stat Discontinued Medications Lidocaine HCl 7 ml/ Sodium (Chloride) 57 mls @ 342 mls/hr IV NOW ONE Stop: 07/05/24 22:27 Last Infusion: 07/05/24 23:12 Dose: Infused Documented By: Admin: 07/05/24 22:47 Dose: 342 mls/hr Documented By: GEETA Ketorolac Tromethamine (Ketorolac 30 Mg/Ml Vial) 15 mg IV NOW ONE Stop: 07/05/24 21:17 Last Admin: 07/05/24 21:24 Dose: 15 mg Documented By: Morphine Sulfate (Morphine 4 Mg/Ml Inj) 4 mg IV NOW ONE Stop: 07/05/24 23:35 Last Admin: 07/05/24 23:51 Dose: 4 mg Documented By: NUVIA Ondansetron HCl (Ondansetron 4 Mg/2 Ml Inj) 4 mg IV NOW ONE Stop: 07/05/24 21:17 Last Admin: 07/05/24 21:23 Dose: 4 mg Documented By: Oxycodone/Acetaminophen (Oxycodone/Apap 5/325 Prepack) 1 bottle MISC DIRECTED ONE Stop: 07/06/24 00:18 Last Admin: 07/06/24 00:33 Dose: 1 bottle Documented By: NUVIA Tamsulosin HCl (Tamsulosin 0.4 Mg Capsule) 0.4 mg PO NOW ONE Stop: 07/05/24 22:17 Last Admin: 07/05/24 22:20 Dose: 0.4 mg Documented By: Vital Signs Vital signs: Vital Signs - 8 hr 07/05/24 20:34 07/05/24 20:57 07/05/24 21:00 Temperature 98.4 F Pulse Rate 72 67 68 Respiratory Rate 18 Blood Pressure 137/85 Pulse Oximetry 100 96 96 Oxygen Delivery Method Room Air 07/05/24 21:31 07/05/24 22:00 07/05/24 22:30 Temperature Pulse Rate 72 72 68 Respiratory Rate Blood Pressure Pulse Oximetry 100 98 99 Oxygen Delivery Method 07/05/24 23:00 07/05/24 23:01 07/05/24 23:01 Temperature Pulse Rate 75 75 Respiratory Rate Blood Pressure 132/78 Pulse Oximetry 97 98 Oxygen Delivery Method 07/05/24 23:30 07/05/24 23:30 07/06/24 00:00 Temperature Pulse Rate 76 Respiratory Rate Blood Pressure 115/87 133/69 Pulse Oximetry 98 Oxygen Delivery Method 07/06/24 00:00 07/06/24 00:19 07/06/24 00:36 Temperature 97.4 F L Pulse Rate 84 Respiratory Rate 18 Blood Pressure Pulse Oximetry 97 Oxygen Delivery Method MDM - Abdominal Pain Lab Data 07/05/24 20:48 07/05/24 20:48 Labs: Lab Results 07/05/24 07/05/24 Range/Units 20:40 20:48 WBC 11.0 (4.5-11.0) X10^3/uL RBC 5.48 (4.5-5.9) X10^6/uL Hgb 12.5 L (13.5-17.5) g/dL Hct 38.3 L (41-53) % MCV 69.9 L (80-100) fL MCH 22.9 L (26-34) PG MCHC 32.7 (30-36) % RDW 21.4 H (11.6-14.8) % Plt Count 286 (150-400) X10^3/uL Neut % (Auto) 63.6 (50-75) % Lymph % (Auto) 27.5 (25-40) % Centre % (Auto) 6.7 (3-14) % Eos % (Auto) 1.3 L (2-4) % Baso % (Auto) 0.9 (0-2) % Neut # (Auto) 7000 (4730-4272) /uL Lymph # (Auto) 3000 (3378-2406) /uL Centre # (Auto) 700 (0-900) /uL Eos # (Auto) 100 (0-450) /uL Baso # (Auto) 100 (0-100) /uL RBC Morphology See below Anisocytosis 1+ H Microcytosis 1+ H Sodium 138 (137-145) mmol/L Potassium 3.9 (3.4-5.1) mmol/L Chloride 107 (98-107) mmol/L Carbon Dioxide 21 L (22-32) mmol/L BUN 15 (9-20) mg/dL Creatinine 1.12 (0.66-1.25) mg/dL Estimated GFR > 60 (>60) mL/min BUN/Creatinine Ratio 13.4 (6-22) Glucose 101 H (70-100) mg/dL Calcium 9.6 (8.4-10.2) mg/dL Total Bilirubin 0.4 (0.2-1.3) mg/dL AST 19 (17-59) IU/L ALT 17 (<50) IU/L Alkaline Phosphatase 89 (38-126) U/L Total Protein 7.9 (6.3-8.2) g/dL Albumin 4.4 (3.5-5.0) g/dL Globulin 3.5 (1.7-4.1) g/dL Albumin/Globulin Ratio 1.3 (1.0-2.8) Lipase 93 (23-300) U/L Urine RBC 30-100/hpf H (0-5/HPF) Urine WBC 0-1/hpf (0-5/HPF) Ur Squamous Epith Cells None seen (0-5/HPF) Urine Bacteria Occasional (0-1) (None) Urine Mucus 2+ H (Negative) Ur Culture Indicated? Cult not indicated Vol Urine Centrifuged 10ml (spun) Point of care testing: Urine Dip Bedside Urine Glucose Negative Bedside Urine Bilirubin - Negative Bedside Urine Ketone ++ 40 Urine Specific [place] 1.025 Bedside Urine Occult Blood +++ Bedside Urine pH 6.0 Bedside Urine Protein - Negative Bedside Urine Urobilinogen - Negative Bedside Urine Nitrite - Negative Bedside Urine Leukocytes - Negative Esterase Imaging Data CT scan - abdomen/pelvis: Radiologist's Impression: [address] [address] [address] Scan Report Signed Patient: Ivan Puckett MR#: [id number] : 1995 Acct:[id number] Age/Sex: 28 / M Date of Service: 07/05/24 Loc: ED Accession Number: [id number] Procedure: CT kidney ureter bladder (KUB) Ordering Provider: Fatmata Matos D.O. PROCEDURE: CT KIDNEY URETER BLADDER (KUB) INDICATIONS: l flank pain, tender LLQ, hematuria TECHNIQUE: Axial sections were acquired from the lung bases to the pubic symphysis. Coronal and sagittal reformats were performed. For radiation dose reduction, the following was used: automated exposure control, adjustment of mA and/or kV according to patient size. COMPARISON: [facility], CT, CT ABDOMEN PELVIS W CON, 01/27/2024, 6:12. FINDINGS: Image quality: Diagnostic. Lower Chest: Lung bases are clear. Small hiatal hernia. URINARY: Right Kidney: Nonobstructing stones measuring up to 3 mm. No hydronephrosis. Right Ureter: No hydroureter. Left Kidney: Mild hydronephrosis. Nonobstructing stones measuring up to 4 mm. Left Ureter: Obstructing stone at the ureterovesicular junction measuring 3 mm with mild upstream hydroureter. Bladder: Decompressed, limiting evaluation. No stones. ABDOMEN: Liver: No contour-deforming solid mass. Gallbladder: No radiopaque gallstones or wall thickening. Biliary ducts: No biliary dilation. Pancreas: No ductal dilation. Spleen: Size is within normal limits. Adrenal Glands: No adrenal nodules. Stomach and Bowel: Normal colonic caliber, without significant wall thickening. Appendix not definitely seen. No right lower quadrant inflammatory changes. Peritoneum: No abnormal intraperitoneal fluid. No free air. Ventral Wall: No hernia. Abdominal Nodes: No enlarged retroperitoneal or mesenteric lymph nodes. Vessels: Aorta and inferior vena cava are normal in size. PELVIS: Pelvic Organs: Unremarkable. Pelvic Nodes: Unremarkable. Miscellaneous: No inguinal hernias are seen. Bones: Unremarkable. IMPRESSION: 1. Obstructing stone at the left ureterovesicular junction measuring 3 mm resulting in mild upstream hydroureteronephrosis. 2. Additional bilateral nonobstructing stones measuring 3 mm on the right and 4 mm on the left. Dictated by: Ed Balbuena M.D. on 07/05/2024 at 21:57 Approved by: Ed Balbuena M.D. on 07/05/2024 at 22:02 [facility] Narrative Medical decision making narrative: 28-year-old male symptoms and clinical history seem most consistent with kidney stone although patient is tender in his left lower quadrant on palpation notes flank pain wrap around to the front. Urine seems consistent with hematuria but we will obtain CT KUB to confirm stone rather than ultrasound as he is tender in the left lower quadrant. Labs are also obtained. Point of care urine shows blood. Urine microscopy shows 3200 RBCs 0-1 WBCs no squamous occasional bacteria 2+ mucus. Labs white count of 11 hemoglobin of 12.5 microcytic anemia consistent with priors back to January of 2024. Platelets are 286. CO2 is 21 electrolytes otherwise appropriate creatinine is 1.12 appears consistent with priors glucose of [address] KUB shows 3 mm stone mild hydro. Additional bilateral nonobstructing stones 3 mm in the right and 4 mm on the left. Toradol, Zofran. Patient's pain improved, but then recurred. Patient was given dose of Flomax. Received lidocaine did have some additional improvement. He states he was sort of waiting for the next additional wave. He has a little bit anxious about pain so we will give an additional dose of pain medication but states currently 3/10. Had additional dose of pain medication patient feels very comfortable states he would like to return. Discussed return precautions all questions answered. Patient feels comfortable with discharge home with plan for Flomax and oral pain medication at home. Did discuss return precautions and for follow-up. Discharge Plan Departure Patient Disposition: Home Clinical Impression: Kidney stone on left side Instructions: DI for Kidney Stones Activity Restrictions/Additional Instructions: Please follow up with primary care Urology if you are having persistent symptoms. You have a small kidney stone in the left side it is very near the bladder, if you are having persistent symptoms beyond 2 or 3 days call to set up follow up with Urology. Take Flomax once daily. You can take Tylenol up to a 1000 mg and/or ibuprofen up to 600 mg every 6 hours as needed for pain. You can take 1-2 tablets of oxycodone every 6 hours needed for pain. This medication can make you sleepy do not drive, perform hazardous activities or make any major decisions while taking it. This medication will make you constipated please take a stool softener once to twice daily until stools are soft and regular. Prescription sent to [facility] in [place]. Please return for fevers, abdominal, back or flank pain, persistent vomiting, inability to urinate or other new or concerning changes. Prescriptions: New tamsulosin [Flomax] 0.4 mg capsule 0.4 mg PO DAILY Qty: 7 0RF oxycodone 5 mg tablet 5 mg PO Q6H PRN (Reason: pain) Qty: 10 0RF No Action omeprazole 20 mg capsule,delayed release(DR/EC) 20 mg PO DAILY Qty: 30 0RF ferrous sulfate 325 mg (65 mg iron) tablet 325 mg PO DAILY Referrals: Casey Cullen DO [Physician] - Provider,Dari TANNER [Primary Care Provider] - Stand Alone Forms: Patient Portal/API, Work Release Note
[2024-07-05 20:50] LABS: Urine Volume 10mL (spun)
[2024-07-05 20:52] LABS: Bacteria Urine Occasional (0-1); Culture Indicated Urine Cult Not Indicated; Mucus Urine 2+ (Negative); RBC Urine 30-100/HPF (0-5/HPF); Squamous Epithelial Cell Urine None Seen (0-5/HPF); WBC Urine 0-1/HPF (0-5/HPF)
--- NOTE | 2024-07-05 21:16 | DI.CT.S_ITS ---
PROCEDURE: CT KIDNEY URETER BLADDER (KUB) INDICATIONS: l flank pain, tender LLQ, hematuria TECHNIQUE: Axial sections were acquired from the lung bases to the pubic symphysis. Coronal and sagittal reformats were performed. For radiation dose reduction, the following was used: automated exposure control, adjustment of mA and/or kV according to patient size. COMPARISON: [facility], CT, CT ABDOMEN PELVIS W CON, 01/27/2024, 6:12. FINDINGS: Image quality: Diagnostic. Lower Chest: Lung bases are clear. Small hiatal hernia. URINARY: Right Kidney: Nonobstructing stones measuring up to 3 mm. No hydronephrosis. Right Ureter: No hydroureter. Left Kidney: Mild hydronephrosis. Nonobstructing stones measuring up to 4 mm. Left Ureter: Obstructing stone at the ureterovesicular junction measuring 3 mm with mild upstream hydroureter. Bladder: Decompressed, limiting evaluation. No stones. ABDOMEN: Liver: No contour-deforming solid mass. Gallbladder: No radiopaque gallstones or wall thickening. Biliary ducts: No biliary dilation. Pancreas: No ductal dilation. Spleen: Size is within normal limits. Adrenal Glands: No adrenal nodules. Stomach and Bowel: Normal colonic caliber, without significant wall thickening. Appendix not definitely seen. No right lower quadrant inflammatory changes. Peritoneum: No abnormal intraperitoneal fluid. No free air. Ventral Wall: No hernia. Abdominal Nodes: No enlarged retroperitoneal or mesenteric lymph nodes. Vessels: Aorta and inferior vena cava are normal in size. PELVIS: Pelvic Organs: Unremarkable. Pelvic Nodes: Unremarkable. Miscellaneous: No inguinal hernias are seen. Bones: Unremarkable. IMPRESSION: 1. Obstructing stone at the left ureterovesicular junction measuring 3 mm resulting in mild upstream hydroureteronephrosis. 2. Additional bilateral nonobstructing stones measuring 3 mm on the right and 4 mm on the left. Dictated by: Ed Balbuena M.D. on 07/05/2024 at 21:57 Approved by: Ed Balbuena M.D. on 07/05/2024 at 22:02
[2024-07-05] MEDS: ONDANSETRON 4 MG/2 ML INJ IV (21:23)
[2024-07-05] MEDS: KETOROLAC 30 MG/ML VIAL 15 MG IV (21:24)
[2024-07-05 21:40] LABS: Add Manual Diff / Slide Review NO; Basophils Absolute Auto 100 /uL (0-100); Basophils Percent Auto 0.9 % (0-2); Eosinophils Absolute Auto 100 /uL (0-450); Eosinophils Percent Auto 1.3 % (2-4); Hematocrit 38.3 % (41-53); Hemoglobin 12.5 g/dL (13.5-17.5); Lymphocytes Absolute Auto 3000 /uL (1100-4500); Lymphocytes Percent Auto 27.5 % (25-40); Mean Corpuscular HGB Conc 32.7 % (30-36); Mean Corpuscular Hemoglobin 22.9 PG (26-34); Mean Corpuscular Volume 69.9 fL (80-100); Monocytes Absolute Auto 700 /uL (0-900); Monocytes Percent Auto 6.7 % (3-14); Neutrophils Absolute Auto 7000 /uL (1500-7000); Neutrophils Percent Auto 63.6 % (50-75); Platelet Count 286 X10^3/uL (150-400); Red Blood Cell Count 5.48 X10^6/uL (4.5-5.9); Red Cell Distribution Width 21.4 % (11.6-14.8)
[2024-07-05 21:46] LABS: Alanine Aminotransferase 17 IU/L (<50); Albumin 4.4 g/dL (3.5-5.0); Albumin Globulin Ratio 1.3 (1.0-2.8); Alkaline Phosphatase 89 U/L (38-126); Aspartate Aminotransferase 19 IU/L (17-59); BUN Creatinine Ratio 13.4 (6-22); Bilirubin Total 0.4 mg/dL (0.2-1.3); Blood Urea Nitrogen 15 mg/dL (9-20); Calcium 9.6 mg/dL (8.4-10.2); Carbon Dioxide 21 mmol/L (22-32); Chloride 107 mmol/L (98-107); Estimated Glomerular Filt Rate > 60 mL/min (>60); Globulin 3.5 g/dL (1.7-4.1); Glucose 101 mg/dL (70-100); HEMOLYSIS < 15 (0-50); Lipase 93 U/L (23-300); Potassium 3.9 mmol/L (3.4-5.1); Sodium 138 mmol/L (137-145); Total Protein 7.9 g/dL (6.3-8.2)
[2024-07-05 22:08] LABS: Anisocytosis 1+; Microcytosis 1+
[2024-07-05] MEDS: TAMSULOSIN 0.4 MG CAPSULE PO (22:20)
[2024-07-05] MEDS: LIDOCAINE 2% (PF) 7 ML in SODIUM CHLORIDE 0.9% 50 ML 342 ML IV (22:47)
[2024-07-05] MEDS: MORPHINE 4 MG/ML INJ IV (23:51)
[2024-07-06] VITALS: BP 133/69; PULSE 84; O2SAT 97
[2024-07-06 00:19] VITALS: RESP 18
[2024-07-06] MEDS: OXYCODONE/APAP 5/325 PREPACK 1 BOTTLE MISC (00:33)
[2024-07-06 00:36] VITALS: TEMP 36.3
== END 2024-07-06 00:37 | disposition home or self-care (01) ==
PROVIDERS: Emergency Provider Emergency Medicine
DX: N20.0 Calculus of kidney (principal); R30.0 Dysuria; R31.9 Hematuria, unspecified; Z87.442 Personal history of urinary calculi; R79.89 Other specified abnormal findings of blood chemistry
CPT/HCPCS: 36415; 74176; 80053; 81003; 81015; 83690; 85025; 87086; 96365; 96375; 99284; J1885; J2270; J2405

== ENCOUNTER 2024-07-06 21:22 | Emergency (ER) | payer OTHER, SELFPAY ==
[2023-12-28 11:54] VITALS: BMI 29.3
[2024-07-06] VITALS (8 sets, daily range): BP systolic 106–122; BP diastolic 51–69; PULSE 90–108; RESP 16; TEMP 37.4; O2SAT 97–99; BMI 25.4
--- NOTE | 2024-07-06 21:36 | ED_ITS ---
HPI - Male Genitourinary General Chief complaint: Fever Stated complaint: fever, kidney stones, hasnt peed in 9 hours Time Seen by Provider: 07/06/24 21:32 Source: patient Mode of arrival: Ambulatory History of Present Illness HPI Narrative: 28-year-old male with history of kidney stone presents with fever, vomiting for 1 day. Patient is seen in this emergency department 24 hours ago for left-sided flank pain. He was diagnosed with a 3 mm stone on the left-hand side and discharged with oxycodone and Flomax. Patient states that he was told that if he has vomiting or fever that he should come back to the ER. This afternoon patient reports a temperature of 101? F and had an episode of vomiting approximately 2 hours after use of sublingual Zofran, and decided to come back to the emergency department. Only medications taken prior to arrival where the oxycodone and Zofran. Patient also stating that despite drinking lots of fluids at home he has not been able to urinate in the last 9 hours. Related Data Home Medications Medication Instructions Recorded Confirmed ferrous sulfate 325 mg (65 mg 325 mg PO DAILY 01/10/24 02/14/24 iron) tablet Previous Rx's Medication Instructions Recorded omeprazole 20 mg capsule,delayed 20 mg PO DAILY #30 caps 12/29/23 release oxycodone 5 mg tablet 5 mg PO Q6H PRN pain #10 tabs 07/05/24 tamsulosin 0.4 mg capsule (Flomax) 0.4 mg PO DAILY #7 caps 07/05/24 Allergies Allergy/AdvReac Type Severity Reaction Status Date / Time No Known Drug Allergies Allergy Verified 07/06/24 21:30 Patient History Medical History Iron deficiency anemia GERD (gastroesophageal reflux disease) Surgical History History of esophagogastroduodenoscopy (EGD) Social History household members: spouse, children and friend(s) Smoking Status: Current every day smoker alcohol intake: current Smoking Status: Current every day smoker tobacco type: vaping alcohol intake frequency: holidays/special occasions only Substance Use Type: does not use Exam Initial Vital Signs Initial Vital Signs: Vital Signs Temperature 99.3 F 07/06/24 21:26 Pulse Rate 108 H 07/06/24 21:26 Respiratory Rate 16 07/06/24 21:26 Blood Pressure 109/68 07/06/24 21:26 Pulse Oximetry 99 07/06/24 21:26 Oxygen Delivery Method Room Air 07/06/24 21:26 Const: Awake, alert, no acute distress, nontoxic appearing Cardiac: regular rate, regular rhythm RESP: unlabored, clear bilaterally, no wheezing GI: Soft, nontender, nondistended MSK back: No midline tenderness, left-sided lower lumbar tenderness to percussion Skin: Warm, Dry, intact, no rashes Neuro: AO x3, CN II-XII grossly intact, moves all extremities Course Orders Ordered: ED Orders 07/06/24 21:55 CBC Auto Diff [Complete Blood Count AUTO DIFF] Stat CMP [Comprehensive Metabolic Panel] Stat 07/06/24 23:12 US renal complete Stat 07/06/24 23:16 UA Complete [Urinalysis and Microscopic] Stat 07/07/24 00:21 Respiratory Panel (Film Array) Stat Discontinued Medications Promethazine HCl (Promethazine 25 Mg Tablet) 25 mg PO NOW ONE Stop: 07/06/24 23:52 Last Admin: 07/07/24 00:00 Dose: 25 mg Documented By: AB Vital Signs Vital signs: Vital Signs - 8 hr 07/06/24 21:26 07/06/24 21:45 07/06/24 21:46 Temperature 99.3 F Pulse Rate 108 H 98 H Respiratory Rate 16 Blood Pressure 109/68 122/69 Pulse Oximetry 99 98 Oxygen Delivery Method Room Air 07/06/24 21:46 07/06/24 22:00 07/06/24 22:00 Temperature Pulse Rate 98 H 98 H Respiratory Rate Blood Pressure 122/66 Pulse Oximetry 98 97 Oxygen Delivery Method 07/06/24 22:30 07/06/24 22:30 07/06/24 23:00 Temperature Pulse Rate 97 H 90 Respiratory Rate Blood Pressure 106/51 L Pulse Oximetry 98 98 Oxygen Delivery Method 07/06/24 23:00 07/06/24 23:30 07/06/24 23:30 Temperature Pulse Rate 94 H Respiratory Rate Blood Pressure 112/59 L 121/65 Pulse Oximetry 97 Oxygen Delivery Method 07/06/24 23:50 07/06/24 23:50 07/07/24 00:00 Temperature Pulse Rate 100 H Respiratory Rate Blood Pressure 122/67 121/62 Pulse Oximetry 99 Oxygen Delivery Method 07/07/24 00:00 07/07/24 00:30 07/07/24 00:30 Temperature Pulse Rate 95 H 98 H Respiratory Rate Blood Pressure 125/58 L Pulse Oximetry 99 96 Oxygen Delivery Method 07/07/24 01:00 07/07/24 01:00 07/07/24 01:30 Temperature Pulse Rate 90 Respiratory Rate Blood Pressure 111/55 L 98/53 L Pulse Oximetry 97 Oxygen Delivery Method 07/07/24 01:30 07/07/24 02:00 07/07/24 02:00 Temperature Pulse Rate 95 H 96 H Respiratory Rate Blood Pressure 126/57 L Pulse Oximetry 95 97 Oxygen Delivery Method 07/07/24 02:07 Temperature 99.4 F Pulse Rate Respiratory Rate Blood Pressure Pulse Oximetry Oxygen Delivery Method MDM - Male Genitourinary Differential Diagnosis Differential diagnosis: Likely urinary tract infection, acute retention of urine and inguinal hernia Lab Data 07/06/24 21:55 07/06/24 21:55 Labs: Lab Results 07/06/24 07/06/24 07/07/24 Range/Units 21:55 23:16 00:21 WBC 16.8 H D (4.5-11.0) X10^3/uL RBC 5.52 (4.5-5.9) X10^6/uL Hgb 12.5 L (13.5-17.5) g/dL Hct 38.7 L (41-53) % MCV 70.1 L (80-100) fL MCH 22.6 L (26-34) PG MCHC 32.3 (30-36) % RDW 21.3 H (11.6-14.8) % Plt Count 249 (150-400) X10^3/uL Neut % (Auto) 88.0 H D (50-75) % Lymph % (Auto) 5.8 L D (25-40) % [place] % (Auto) 5.8 (3-14) % Eos % (Auto) 0.1 L (2-4) % Baso % (Auto) 0.3 (0-2) % Neut # (Auto) 50517 H (5773-8829) /uL Lymph # (Auto) 1000 L (4280-8523) /uL [place] # (Auto) 1000 H (0-900) /uL Eos # (Auto) 0 (0-450) /uL Baso # (Auto) 100 (0-100) /uL RBC Morphology See below Anisocytosis 1+ H Microcytosis 1+ H Sodium 135 L (137-145) mmol/L Potassium 4.0 (3.4-5.1) mmol/L Chloride 104 (98-107) mmol/L Carbon Dioxide 22 (22-32) mmol/L BUN 14 (9-20) mg/dL Creatinine 1.63 H (0.66-1.25) mg/dL Estimated GFR 59 L (>60) mL/min BUN/Creatinine Ratio 8.6 (6-22) Glucose 152 H (70-100) mg/dL Calcium 9.1 (8.4-10.2) mg/dL Total Bilirubin 0.8 (0.2-1.3) mg/dL AST 19 (17-59) IU/L ALT 16 (<50) IU/L Alkaline Phosphatase 83 (38-126) U/L Total Protein 7.9 (6.3-8.2) g/dL Albumin 4.4 (3.5-5.0) g/dL Globulin 3.5 (1.7-4.1) g/dL Albumin/Globulin Ratio 1.3 (1.0-2.8) Urine Color Yellow Urine Appearance Clear Urine pH 6.0 (4.5-8.0) Ur Specific [place] 1.020 (1.000-1.035) Urine Protein Negative (Negative) Urine Glucose (UA) Negative (Negative) g/dL Urine Ketones 1+ H (NEGATIVE) Urine Occult Blood Negative (Negative) Urine Nitrate Negative (Negative) Urine Bilirubin Negative (NEGATIVE) Urine Urobilinogen 0.2 (0.2) E.U./dL Ur Leukocyte Esterase Negative (NEGATIVE) Urine RBC None seen (0-5/HPF) Urine WBC 0-1/hpf (0-5/HPF) Ur Squamous Epith Cells 0-1 /hpf (0-5/HPF) Amorphous Sediment 2+ Urine Bacteria Occasional (0-1) (None) Urine Mucus 3+ H (Negative) Ur Culture Indicated? Cult not indicated Vol Urine Centrifuged 10ml (spun) Chlamy pneumoniae PCR Not detected (Not Detect) Adenovirus (PCR) Not detected (Not Detect) B. pertussis DNA (PCR) Not detected (Not Detect) B.parapertussis DNA PCR Not detected (Not Detecte) Coronavirus OC43 (PCR) Not detected (Not Detect) Coronavirus HKU1 (PCR) Not detected (Not Detect) Coronavirus 229E (PCR) Not detected (Not Detect) SARS-CoV-2 (PCR) Not detected (Not Detecte) Coronavirus NL63 (PCR) Not detected (Not Detect) Human Metapneumovir PCR Not detected (Not Detect) Influenza Type A (PCR) Not detected (Not Detect) Influenza Type B (PCR) Not detected (Not Detect) M. pneumoniae (PCR) Not detected (Not Detect) Parainfluenza 1 (PCR) Not detected (Not Detect) Parainfluenza 2 (PCR) Not detected (Not Detect) Parainfluenza 3 (PCR) Not detected (Not Detect) Parainfluenza 4 (PCR) Not detected (Not Detect) RSV (PCR) Not detected (Not Detect) Entero/Rhino (PCR) Not detected (Not Detect) Urine Dip Bedside Urine Glucose Negative Bedside Urine Bilirubin - Negative Bedside Urine Ketone + 15 Urine Specific [place] 1.020 Bedside Urine Occult Blood - Negative Bedside Urine pH 6.0 Bedside Urine Protein +/- 15 Bedside Urine Urobilinogen - Negative Bedside Urine Nitrite - Negative Bedside Urine Leukocytes - Negative Esterase Imaging Data US - abdomen: Radiologist's Impression: PROCEDURE: US RENAL COMPLETE INDICATIONS: SIN, RECENT DX KIDNEY STONES, FEVER TECHNIQUE: Real-time scanning was performed of the kidneys and bladder, with image documentation. COMPARISON: [facility], CT, CT KIDNEY URETER BLADDER (KUB), 07/05/2024, 21:24. FINDINGS: Kidneys: Kidneys are normal in size. Right kidney measures 10.6 cm long; left kidney measures 12.3 cm long. Right renal cortical thickness is 2.0 cm; left renal cortical thickness is 2.2 cm. Renal cortical echotexture is normal. No hydronephrosis or nephrolithiasis. No suspicious solid mass lesions. Bladder: Urinary bladder is not distended and, limiting evaluation. Left ureterovesicular junction stone is not visualized. Miscellaneous: No free pelvic fluid. IMPRESSION: Prior renal stones are not visualized by ultrasound. The kidneys are normal in appearance without hydronephrosis. Urinary bladder is decompressed, limiting evaluation. Dictated by: Ed Balbuena M.D. on 07/07/2024 at 0:24 Approved by: Ed Balbuena M.D. on 07/07/2024 at 0:25 MDM Narrative Medical decision making narrative: Nontoxic appearing patient with reports of fever at home with vomiting. Recently diagnosed with kidney stone. Patient was afebrile on arrival to the emergency department. He took oxycodone prior to arrival but no antipyretics. Abdomen soft, no peritoneal signs. Since patient has had CT scan within the last 24 hours and he was of a young age I am reluctant to Re scan at this time. Laboratory work and ultrasound imaging to be ordered. Laboratory work reviewed, WBC count 16.8, hemoglobin 12.5, platelet count 249, sodium 135, potassium 4.0, creatinine 1.63 (previous 1.12), normal liver enzymes. UA with occasional WBCs, 1+ ketones, no leukocyte esterase, no nitrates present. Ultrasound of the kidneys shows no hydronephrosis, unable to visualize stones. Respiratory panel negative. Patient was given a L of IV fluids and nausea medications. He was subsequently able to tolerate p.o. and able to provide urine sample, which only showed 1+ ketones. Question if leukocytosis is secondary to vomiting. No obvious source of bacterial infection on exam. Patient may have passed stone in interim as hydronephrosis and red blood cells in urine seem to have resolved. Patient counseled of all lab and imaging findings. No obvious explanation for reported fever at home. He was counseled to continue taking all previous medications as prescribed and to continue to drink lots of fluid. He may take Tylenol as needed for fever or discomfort in addition to the oxycodone that is previously prescribed. Patient was counseled on the importance of following up with Urology and referral numbers were provided. ED return precautions discussed at bedside. Discharge Plan Departure Patient Disposition: Home Clinical Impression: Fever of unknown origin Instructions: DI for Fever (Symptom) -- Adult Activity Restrictions/Additional Instructions: Your laboratory work today showed a mild increase in your white blood cell count and your kidney function. Your urinalysis did not show any signs of infection. The ultrasound of your kidneys today showed improvement in the swelling of your kidney and the stones were no longer visualized. I do not know the cause of your fever today. It does not appear to be an obvious kidney or urine infection. Continue to take the Flomax and pain medications as prescribed. You may take up to 1000 mg of Tylenol every 6-8 hours as needed for pain or fever. Follow up with a urologist, two Urologist names are provided below. If you continued to notice recurrent fever and persistent pain please come back to the emergency department for repeat evaluation. Prescriptions: No Action tamsulosin [Flomax] 0.4 mg capsule 0.4 mg PO DAILY Qty: 7 0RF oxycodone 5 mg tablet 5 mg PO Q6H PRN (Reason: pain) Qty: 10 0RF omeprazole 20 mg capsule,delayed release(DR/EC) 20 mg PO DAILY Qty: 30 0RF ferrous sulfate 325 mg (65 mg iron) tablet 325 mg PO DAILY Referrals: Casey Cullen DO [Physician] - Provider,Dari TANNER [Primary Care Provider] - Eduardo Mc MD [Physician] - Stand Alone Forms: Patient Portal/API
[2024-07-06 22:08] LABS: Add Manual Diff / Slide Review NO; Basophils Absolute Auto 100 /uL (0-100); Basophils Percent Auto 0.3 % (0-2); Eosinophils Absolute Auto 0 /uL (0-450); Eosinophils Percent Auto 0.1 % (2-4); Hematocrit 38.7 % (41-53); Hemoglobin 12.5 g/dL (13.5-17.5); Lymphocytes Absolute Auto 1000 /uL (1100-4500); Lymphocytes Percent Auto 5.8 % (25-40); Mean Corpuscular HGB Conc 32.3 % (30-36); Mean Corpuscular Hemoglobin 22.6 PG (26-34); Mean Corpuscular Volume 70.1 fL (80-100); Monocytes Absolute Auto 1000 /uL (0-900); Monocytes Percent Auto 5.8 % (3-14); Neutrophils Absolute Auto 14800 /uL (1500-7000); Platelet Count 249 X10^3/uL (150-400); Red Blood Cell Count 5.52 X10^6/uL (4.5-5.9); Red Cell Distribution Width 21.3 % (11.6-14.8); White Blood Cell Count 16.8 X10^3/uL (4.5-11.0)
[2024-07-06 22:15] LABS: Alanine Aminotransferase 16 IU/L (<50); Albumin 4.4 g/dL (3.5-5.0); Albumin Globulin Ratio 1.3 (1.0-2.8); Alkaline Phosphatase 83 U/L (38-126); Aspartate Aminotransferase 19 IU/L (17-59); BUN Creatinine Ratio 8.6 (6-22); Bilirubin Total 0.8 mg/dL (0.2-1.3); Blood Urea Nitrogen 14 mg/dL (9-20); Calcium 9.1 mg/dL (8.4-10.2); Carbon Dioxide 22 mmol/L (22-32); Chloride 104 mmol/L (98-107); Estimated Glomerular Filt Rate 59 mL/min (>60); Globulin 3.5 g/dL (1.7-4.1); Glucose 152 mg/dL (70-100); HEMOLYSIS < 15 (0-50); Sodium 135 mmol/L (137-145); Total Protein 7.9 g/dL (6.3-8.2)
[2024-07-06 22:39] LABS: Anisocytosis 1+; Microcytosis 1+
--- NOTE | 2024-07-06 23:12 | DI.US.S_ITS ---
PROCEDURE: US RENAL COMPLETE INDICATIONS: SIN, RECENT DX KIDNEY STONES, FEVER TECHNIQUE: Real-time scanning was performed of the kidneys and bladder, with image documentation. COMPARISON: [facility], CT, CT KIDNEY URETER BLADDER (KUB), 07/05/2024, 21:24. FINDINGS: Kidneys: Kidneys are normal in size. Right kidney measures 10.6 cm long; left kidney measures 12.3 cm long. Right renal cortical thickness is 2.0 cm; left renal cortical thickness is 2.2 cm. Renal cortical echotexture is normal. No hydronephrosis or nephrolithiasis. No suspicious solid mass lesions. Bladder: Urinary bladder is not distended and, limiting evaluation. Left ureterovesicular junction stone is not visualized. Miscellaneous: No free pelvic fluid. IMPRESSION: Prior renal stones are not visualized by ultrasound. The kidneys are normal in appearance without hydronephrosis. Urinary bladder is decompressed, limiting evaluation. Dictated by: Ed Balbuena M.D. on 07/07/2024 at 0:24 Approved by: Ed Balbuena M.D. on 07/07/2024 at 0:25
[2024-07-06 23:37] LABS: Appearance Urine UA CLEAR; Bilirubin Urine UA NEGATIVE (NEGATIVE); Color Urine UA YELLOW; Glucose Urine UA NEGATIVE (Negative); Ketones Urine UA 1+ (NEGATIVE); Leukocyte Esterase Urine UA NEGATIVE (NEGATIVE); Nitrite Urine UA NEGATIVE (Negative); Occult Blood Urine UA NEGATIVE (Negative); Protein Urine UA NEGATIVE (Negative); Urobilinogen Urine UA 0.2 E.U./dL (0.2)
[2024-07-06 23:44] LABS: Bacteria Urine Occasional (0-1); RBC Urine None Seen (0-5/HPF); Squamous Epithelial Cell Urine 0-1 /HPF (0-5/HPF); Urine Volume 10mL (spun)
[2024-07-06 23:45] LABS: Amorphous Sediment Urine 2+; Mucus Urine 3+ (Negative)
[2024-07-06 23:46] LABS: Culture Indicated Urine Cult Not Indicated; WBC Urine 0-1/HPF (0-5/HPF)
[2024-07-07] VITALS: BP 121/62; PULSE 95; O2SAT 99
[2024-07-07] MEDS: PROMETHAZINE 25 MG TABLET PO
[2024-07-07 00:30] VITALS: BP 125/58; PULSE 98; O2SAT 96
[2024-07-07 01:00] VITALS: BP 111/55; PULSE 90; O2SAT 97
[2024-07-07 01:30] VITALS: BP 98/53; PULSE 95; O2SAT 95
[2024-07-07 01:32] LABS: Adenovirus Not Detected (Not Detect); B. parapertussis Not Detected (Not Detecte); Bordetella pertussis Not Detected (Not Detect); Chlamydophila pneumoniae Not Detected (Not Detect); Coronavirus 229E Not Detected (Not Detect); Coronavirus HKU1 Not Detected (Not Detect); Coronavirus NL 63 Not Detected (Not Detect); Coronavirus OC43 Not Detected (Not Detect); Human Metapneumovirus Not Detected (Not Detect); Human Rhinovirus/Enterovirus Not Detected (Not Detect); Influenza A Not Detected (Not Detect); Influenza B Not Detected (Not Detect); Mycoplasma pneumoniae Not Detected (Not Detect); Parainfluenza Virus 1 Not Detected (Not Detect); Parainfluenza Virus 2 Not Detected (Not Detect); Parainfluenza Virus 3 Not Detected (Not Detect); Parainfluenza Virus 4 Not Detected (Not Detect); Respiratory Syncytial Virus Not Detected (Not Detect); SARS- CoV-2 Not Detected (Not Detecte)
[2024-07-07 02:00] VITALS: BP 126/57; PULSE 96; O2SAT 97
--- NOTE | 2024-07-07 02:00 | PC.NURSE ---
Pt afebrile, tolerating PO w/o c/o.
[2024-07-07 02:07] VITALS: TEMP 37.4
== END 2024-07-07 02:15 | disposition home or self-care (01) ==
PROVIDERS: Emergency Provider Emergency Medicine
DX: R50.9 Fever, unspecified (principal); R11.10 Vomiting, unspecified; R10.9 Unspecified abdominal pain; R79.89 Other specified abnormal findings of blood chemistry; Z11.52 Encounter for screening for COVID-19; Z87.442 Personal history of urinary calculi
CPT/HCPCS: 36415; 76770; 80053; 81001; 81003; 85025; 87633; 99284

== ENCOUNTER 2024-07-12 12:44 | Emergency (ER) | payer OTHER, SELFPAY ==
[2023-12-28 11:54] VITALS: BMI 29.3
[2024-07-12 12:55] VITALS: BP 137/78; PULSE 80; RESP 18; TEMP 37.1; O2SAT 100; BMI 25.2
[2024-07-12 13:43] LABS: Bacteria Urine None Seen; Culture Indicated Urine Cult Not Indicated; RBC Urine 5-10/HPF (0-5/HPF); Squamous Epithelial Cell Urine 0-1 /HPF (0-5/HPF); Urine Volume 10mL (spun); WBC Urine 0-1/HPF (0-5/HPF)
--- NOTE | 2024-07-12 13:52 | ED_ITS ---
HPI - Abdominal Pain General Chief Complaint: Urogenital-Male Stated Complaint: per pt kidney stones Time Seen by Provider: 07/12/24 13:50 Source: family Mode of arrival: Ambulatory History of Present Illness HPI narrative: Patient is a 28-year-old male no significant past medical history presenting for left-sided flank pain. Diagnosed with a 3 mm stone on the left side on 07/06/2024. He presented on 07/07/2024 for the same symptoms. He presents for presents to the pain on the left side., states that it slightly did improve previously but is still there therefore decided come into the ED for further evaluation treatment. On CT scan on 07/06/2024 there are no visualized stones, kidneys normal without hydronephrosis. Related Data Home Medications Medication Instructions Recorded Confirmed ferrous sulfate 325 mg (65 mg 325 mg PO DAILY 01/10/24 02/14/24 iron) tablet Previous Rx's Medication Instructions Recorded omeprazole 20 mg capsule,delayed 20 mg PO DAILY #30 caps 12/29/23 release oxycodone 5 mg tablet 5 mg PO Q6H PRN pain #10 tabs 07/05/24 tamsulosin 0.4 mg capsule (Flomax) 0.4 mg PO DAILY #7 caps 07/05/24 cephalexin 500 mg capsule 500 mg PO TID 7 days #21 caps 07/12/24 ondansetron 4 mg disintegrating 4 mg PO Q8-12H PRN nausea and 07/12/24 tablet vomiting 7 days #21 tabs oxycodone-acetaminophen 5 mg-325 1 tab PO Q8H PRN pain 5 days #15 07/12/24 mg tablet (Percocet) tabs tamsulosin 0.4 mg capsule (Flomax) 0.4 mg PO DAILY 7 days #7 caps 07/12/24 Allergies Allergy/AdvReac Type Severity Reaction Status Date / Time No Known Drug Allergies Allergy Verified 07/06/24 21:30 Review of Systems Review of Systems Narrative: General: Cooperative, comfortable, well-developed, not in acute distress HEENT: Normocephalic, atraumatic, PERRLA, normal sclera, eyelids normal, Neck: Active full range of motion, atraumatic Chest: Normal to inspection, negative crepitus, no overlying erythema ecchymosis Respiratory: Normal respiratory effort, not in acute respiratory distress, clear to auscultation bilaterally negative cough, wheeze, tachypnea, rhonchi, rales Cardiology: Regular rate rhythm negative gallop, murmur, rubs GI/: Normal to inspection, soft, nonrigid, no tenderness to palpation, left- sided flank pain exam deferred MSK: Full range of active range of motion of all 4 extremities, atraumatic Skin: No rashes lesions noted Neuro: Alert awake oriented x3, moves all 4 extremities spontaneously, cranial nerves intact, able to answer all questions appropriately follows commands appropriately Psych: Cooperative, negative suicidal or homicidal ideations Patient History Medical History Iron deficiency anemia GERD (gastroesophageal reflux disease) Surgical History History of esophagogastroduodenoscopy (EGD) Social History household members: spouse, children and friend(s) Smoking Status: Current every day smoker alcohol intake: current Smoking Status: Current every day smoker tobacco type: vaping alcohol intake frequency: holidays/special occasions only Substance Use Type: does not use Exam Narrative Exam Narrative: General: Cooperative, comfortable, well-developed, not in acute distress HEENT: Normocephalic, atraumatic, PERRLA, normal sclera, eyelids normal, Neck: Active full range of motion, atraumatic Chest: Normal to inspection, negative crepitus, no overlying erythema ecchymosis Respiratory: Normal respiratory effort, not in acute respiratory distress, clear to auscultation bilaterally negative cough, wheeze, tachypnea, rhonchi, rales Cardiology: Regular rate rhythm negative gallop, murmur, rubs GI/: Normal to inspection, soft, nonrigid, no tenderness to palpation, exam deferred, positive left-sided flank pain MSK: Full range of active range of motion of all 4 extremities, atraumatic Skin: No rashes lesions noted Neuro: Alert awake oriented x3, moves all 4 extremities spontaneously, cranial nerves intact, able to answer all questions appropriately follows commands appropriately Psych: Cooperative, negative suicidal or homicidal ideations Initial Vital Signs Initial Vital Signs: Vital Signs Temperature 98.8 F 07/12/24 12:55 Pulse Rate 80 07/12/24 12:55 Respiratory Rate 18 07/12/24 12:55 Blood Pressure 137/78 07/12/24 12:55 Pulse Oximetry 100 07/12/24 12:55 Oxygen Delivery Method Room Air 07/12/24 12:55 Course Orders Ordered: ED Orders 07/12/24 13:00 Urine Microscopic Stat 07/12/24 13:30 BMP [Basic Metabolic Panel] Stat CBC Auto Diff [Complete Blood Count AUTO DIFF] Stat 07/12/24 13:56 CT abdomen pelvis wo con Stat Discontinued Medications Ketorolac Tromethamine (Ketorolac 30 Mg/Ml Vial) 15 mg IV NOW ONE Stop: 07/12/24 13:57 Last Admin: 07/12/24 14:04 Dose: 15 mg Documented By: MAHESH Ondansetron HCl (Ondansetron 4 Mg/2 Ml Inj) 4 mg IV NOW PRN PRN Reason: Nausea And Vomiting Last Admin: 07/12/24 14:13 Dose: 4 mg Documented By: MAHESH Ondansetron HCl (Ondansetron 4 Mg Odt) 4 mg SL NOW PRN PRN Reason: Nausea And Vomiting Vital Signs Vital signs: Vital Signs - 8 hr 07/12/24 15:09 07/12/24 15:09 07/12/24 15:30 Pulse Rate 74 Blood Pressure 120/58 L 123/79 Pulse Oximetry 99 07/12/24 15:30 07/12/24 16:00 07/12/24 16:00 Pulse Rate 75 68 Blood Pressure 118/67 Pulse Oximetry 99 99 07/12/24 16:30 07/12/24 16:30 Pulse Rate 64 Blood Pressure 119/71 Pulse Oximetry 99 MDM - Abdominal Pain Differential Diagnosis Differential diagnosis: Likely calculus of kidney and other (Urinary tract infection, pyelonephritis) Lab Data 07/12/24 13:30 07/12/24 13:30 Labs: Lab Results 07/12/24 07/12/24 Range/Units 13:00 13:30 WBC 6.2 (4.5-11.0) X10^3/uL RBC 5.32 (4.5-5.9) X10^6/uL Hgb 12.5 L (13.5-17.5) g/dL Hct 37.5 L (41-53) % MCV 70.5 L (80-100) fL MCH 23.4 L (26-34) PG MCHC 33.3 (30-36) % RDW 20.8 H (11.6-14.8) % Plt Count 300 (150-400) X10^3/uL Neut % (Auto) 56.7 (50-75) % Lymph % (Auto) 31.4 (25-40) % Vernon % (Auto) 7.4 (3-14) % Eos % (Auto) 3.5 (2-4) % Baso % (Auto) 1.0 (0-2) % Neut # (Auto) 3500 (3967-8730) /uL Lymph # (Auto) 1900 (8039-9493) /uL Vernon # (Auto) 500 (0-900) /uL Eos # (Auto) 200 (0-450) /uL Baso # (Auto) 100 (0-100) /uL RBC Morphology See Anisocytosis 1+ H Microcytosis 1+ H Sodium 141 (137-145) mmol/L Potassium 3.9 (3.4-5.1) mmol/L Chloride 107 (98-107) mmol/L Carbon Dioxide 23 (22-32) mmol/L BUN 11 (9-20) mg/dL Creatinine 1.01 (0.66-1.25) mg/dL Estimated GFR > 60 (>60) mL/min BUN/Creatinine Ratio 10.9 (6-22) Glucose 83 (70-100) mg/dL Calcium 9.5 (8.4-10.2) mg/dL Urine RBC 5-10/hpf H (0-5/HPF) Urine WBC 0-1/hpf (0-5/HPF) Ur Squamous Epith Cells 0-1 /hpf (0-5/HPF) Urine Bacteria None seen (None) Ur Culture Indicated? Cult not indicated Vol Urine Centrifuged 10ml (spun) Point of care testing: Urine Dip Bedside Urine Glucose Negative Bedside Urine Bilirubin - Negative Bedside Urine Ketone - Negative Urine Specific [place] 1.015 Bedside Urine Occult Blood +++ Bedside Urine pH 8.5 Bedside Urine Protein + 30 Bedside Urine Urobilinogen - Negative Bedside Urine Nitrite - Negative Bedside Urine Leukocytes - Negative Esterase Imaging Data CT scan - abdomen/pelvis: Radiologist's Impression: [address] [address] [address] Scan Report Signed Patient: Ivan Puckett MR#: [id number] : 1995 Acct:[id number] Age/Sex: 28 / M Date of Service: 07/12/24 Loc: ED Accession Number: [id number] Procedure: CT abdomen pelvis wo con Ordering Provider: Alexis Luu D.O. PROCEDURE: CT ABDOMEN PELVIS WO CON INDICATIONS: left sided flank pain TECHNIQUE: Axial sections were acquired from the lung bases to the pubic symphysis. Coronal and sagittal reformats were performed. For radiation dose reduction, the following was used: automated exposure control, adjustment of mA and/or kV according to patient size. COMPARISON: [facility], CT, CT KIDNEY URETER BLADDER (KUB), 07/05/2024, 21:24. FINDINGS: Image quality: Diagnostic. Lower Chest: No significant findings. URINARY: Right Kidney: Multiple tiny punctate nonobstructing stones. No hydronephrosis. Right Ureter: No hydroureter. Left Kidney: Mild hydronephrosis. No residual renal parenchymal stone. Left Ureter: Hydroureter down to the level of the distal ureter at the ureterovesical junction, with obstruction by a 3 mm stone. This stone was likely previously present in the left kidney. Reference previous image 45 of series 2. It likely represents a different stone that was previously present in the same location on the previous study. It is larger than the stone seen on the previous study in the distal ureter. Reference current image 133 of series 2 and previous image 127 of series 2. Bladder: Normal wall thickness. No stones. ABDOMEN: Liver: No contour-deforming solid mass. Gallbladder: No radiopaque gallstones or wall thickening. Biliary ducts: No biliary dilation. Pancreas: No ductal dilation. Spleen: Size is within normal limits. Adrenal Glands: No adrenal nodules. Stomach and Bowel: Normal colonic caliber, without significant wall thickening. Peritoneum: No abnormal intraperitoneal fluid. No free air. Ventral Wall: No hernia. Abdominal Nodes: No enlarged retroperitoneal or mesenteric lymph nodes. Vessels: Aorta and inferior vena cava are normal in size. PELVIS: Pelvic Organs: Unremarkable. Pelvic Nodes: Unremarkable. Miscellaneous: No inguinal hernias are seen. Bones: Unremarkable. IMPRESSION: 1. Previously a 2 mm stone obstructed the distal left ureter at the ureterovesical junction. It has passed, and now a different stone, measuring 3 mm, obstructs the distal left ureter at the ureterovesical junction. 2. Multiple punctate nonobstructing right renal stones. 3. No residual parenchymal stones in the left kidney. MDM Narrative Medical decision making narrative: Patient is a 28-year-old male recent diagnosis left-sided kidney stone comes into the ED for evaluation of left-sided flank pain. States it is similar to when he was diagnosed with a kidney stone a few days/weeks ago. He states that he is pretty sure that he passed it given the fact that his pain had resolved a few days ago. However he states that today he woke up started feeling pain to his left flank. He was seen here recently for similar symptoms. Ultrasound at that time showed no urolithiasis. Here patient without urinary symptoms, urine not consistent with an acute urinary tract infection but did have blood. CT scan showing a 3 mm stone. No hydronephrosis, lab work without elevated creatinine no leukocytosis. Patient will be sent home on Flomax, Keflex, antiemetics and analgesics to attempt to pass the stone at home. He was provided a urinary strainer and instructed to follow up with Urology in an outpatient setting. Patient was given strict return precautions and is safe for discharge home with outpatient follow up/ Discharge Plan Departure Patient Disposition: Home Clinical Impression: Urolithiasis Activity Restrictions/Additional Instructions: Please follow up with Urology Please read the discharge instructions sheet carefully and bring all papers to all doctor follow-up visits, as it may contain information that your doctor may want to see. Disease processes change and evolve, if your symptoms worsen or if you develop any new symptoms that are concerning to you please return for evaluation. Your evaluation today does not show any evidence of any life- threatening/serious illnesses requiring admission to the hospital or surgery. Please follow-up with your doctor for re-evaluation in approximately 1 day. Seek immediate medical attention for any worrisome symptoms. Prescriptions: New oxycodone-acetaminophen [Percocet] 5-325 mg tablet 1 tab PO Q8H PRN (Reason: pain) 5 Days Qty: 15 0RF tamsulosin [Flomax] 0.4 mg capsule 0.4 mg PO DAILY 7 Days Qty: 7 0RF ondansetron 4 mg tablet,disintegrating 4 mg PO Q8-12H PRN (Reason: nausea and vomiting) 7 Days Qty: 21 0RF cephalexin 500 mg capsule 500 mg PO TID 7 Days Qty: 21 0RF No Action tamsulosin [Flomax] 0.4 mg capsule 0.4 mg PO DAILY Qty: 7 0RF oxycodone 5 mg tablet 5 mg PO Q6H PRN (Reason: pain) Qty: 10 0RF omeprazole 20 mg capsule,delayed release(DR/EC) 20 mg PO DAILY Qty: 30 0RF ferrous sulfate 325 mg (65 mg iron) tablet 325 mg PO DAILY Referrals: Casey Cullen DO [Physician] - Provider,Dari TANNER [Primary Care Provider] - Stand Alone Forms: Patient Portal/API, Work Release Note
--- NOTE | 2024-07-12 13:56 | DI.CT.S_ITS ---
PROCEDURE: CT ABDOMEN PELVIS WO CON INDICATIONS: left sided flank pain TECHNIQUE: Axial sections were acquired from the lung bases to the pubic symphysis. Coronal and sagittal reformats were performed. For radiation dose reduction, the following was used: automated exposure control, adjustment of mA and/or kV according to patient size. COMPARISON: [facility], CT, CT KIDNEY URETER BLADDER (KUB), 07/05/2024, 21:24. FINDINGS: Image quality: Diagnostic. Lower Chest: No significant findings. URINARY: Right Kidney: Multiple tiny punctate nonobstructing stones. No hydronephrosis. Right Ureter: No hydroureter. Left Kidney: Mild hydronephrosis. No residual renal parenchymal stone. Left Ureter: Hydroureter down to the level of the distal ureter at the ureterovesical junction, with obstruction by a 3 mm stone. This stone was likely previously present in the left kidney. Reference previous image 45 of series 2. It likely represents a different stone that was previously present in the same location on the previous study. It is larger than the stone seen on the previous study in the distal ureter. Reference current image 133 of series 2 and previous image 127 of series 2. Bladder: Normal wall thickness. No stones. ABDOMEN: Liver: No contour-deforming solid mass. Gallbladder: No radiopaque gallstones or wall thickening. Biliary ducts: No biliary dilation. Pancreas: No ductal dilation. Spleen: Size is within normal limits. Adrenal Glands: No adrenal nodules. Stomach and Bowel: Normal colonic caliber, without significant wall thickening. Peritoneum: No abnormal intraperitoneal fluid. No free air. Ventral Wall: No hernia. Abdominal Nodes: No enlarged retroperitoneal or mesenteric lymph nodes. Vessels: Aorta and inferior vena cava are normal in size. PELVIS: Pelvic Organs: Unremarkable. Pelvic Nodes: Unremarkable. Miscellaneous: No inguinal hernias are seen. Bones: Unremarkable. IMPRESSION: 1. Previously a 2 mm stone obstructed the distal left ureter at the ureterovesical junction. It has passed, and now a different stone, measuring 3 mm, obstructs the distal left ureter at the ureterovesical junction. 2. Multiple punctate nonobstructing right renal stones. 3. No residual parenchymal stones in the left kidney. Dictated by: Dileep Rivera M.D. on 07/12/2024 at 15:05 Approved by: Dileep Rivera M.D. on 07/12/2024 at 15:14
[2024-07-12] MEDS: KETOROLAC 30 MG/ML VIAL 15 MG IV (14:04)
[2024-07-12 14:05] LABS: Add Manual Diff / Slide Review NO; Basophils Absolute Auto 100 /uL (0-100); Eosinophils Absolute Auto 200 /uL (0-450); Eosinophils Percent Auto 3.5 % (2-4); Hematocrit 37.5 % (41-53); Hemoglobin 12.5 g/dL (13.5-17.5); Lymphocytes Absolute Auto 1900 /uL (1100-4500); Lymphocytes Percent Auto 31.4 % (25-40); Mean Corpuscular HGB Conc 33.3 % (30-36); Mean Corpuscular Hemoglobin 23.4 PG (26-34); Mean Corpuscular Volume 70.5 fL (80-100); Monocytes Absolute Auto 500 /uL (0-900); Monocytes Percent Auto 7.4 % (3-14); Neutrophils Absolute Auto 3500 /uL (1500-7000); Neutrophils Percent Auto 56.7 % (50-75); Platelet Count 300 X10^3/uL (150-400); Red Blood Cell Count 5.32 X10^6/uL (4.5-5.9); Red Cell Distribution Width 20.8 % (11.6-14.8); White Blood Cell Count 6.2 X10^3/uL (4.5-11.0)
[2024-07-12 14:13] LABS: BUN Creatinine Ratio 10.9 (6-22); Blood Urea Nitrogen 11 mg/dL (9-20); Calcium 9.5 mg/dL (8.4-10.2); Carbon Dioxide 23 mmol/L (22-32); Chloride 107 mmol/L (98-107); Estimated Glomerular Filt Rate > 60 mL/min (>60); Glucose 83 mg/dL (70-100); HEMOLYSIS < 15 (0-50); Potassium 3.9 mmol/L (3.4-5.1); Sodium 141 mmol/L (137-145)
[2024-07-12] MEDS: ONDANSETRON 4 MG/2 ML INJ IV (14:13)
[2024-07-12 14:37] LABS: Anisocytosis 1+; RBC Morphology See
[2024-07-12 14:38] LABS: Microcytosis 1+
[2024-07-12 15:09] VITALS: BP 120/58; PULSE 74; O2SAT 99
[2024-07-12 15:30] VITALS: BP 123/79; PULSE 75; O2SAT 99
[2024-07-12 16:00] VITALS: BP 118/67; PULSE 68; O2SAT 99
[2024-07-12 16:30] VITALS: BP 119/71; PULSE 64; O2SAT 99
== END 2024-07-12 16:51 | disposition home or self-care (01) ==
PROVIDERS: Emergency Provider Student in an Organized Health Care Education/Training Program
DX: N20.1 Calculus of ureter (principal); Z87.442 Personal history of urinary calculi
CPT/HCPCS: 36415; 74176; 80048; 81003; 81015; 85025; 96374; 96375; 99284; J1885; J2405

== ENCOUNTER → 2024-08-18 15:57 | Outpatient (CLI) | payer OTHER, SELFPAY ==
[2023-12-28 11:54] VITALS: BMI 29.3
--- NOTE | 2024-08-18 15:58 | DI.CT.S_ITS ---
PROCEDURE: CT PEL WO CON INDICATIONS: 28 y/o M w/ 3mm left UVJ calculus, eval for passage TECHNIQUE: Noncontrast 3 mm axial sections acquired through the bony pelvis, with coronal and sagittal reformatting. COMPARISON: [facility], CT, CT ABDOMEN PELVIS WO CON, 07/12/2024, 14:42. FINDINGS: Image quality: Excellent. Bones: No fracture or dislocation. No suspicious osseous lesion. Soft tissues: The previously seen distal left ureteral stone is no longer present, (2/59). No hydroureter. A few small phleboliths. No free fluid. No adenopathy. No bladder stone. IMPRESSION: No obstructing calculus. The previously seen distal left ureter stone is no longer present. No bladder stone. Dictated by: Esau Mckeon M.D. on 08/18/2024 at 22:17 Approved by: Esau Mckeon M.D. on 08/18/2024 at 22:23
== END ==
PROVIDERS: Referring Provider Urology; Visit Provider Urology
DX: N20.1 Calculus of ureter (principal)
CPT/HCPCS: 72192

== ENCOUNTER → 2024-09-13 13:32 | Outpatient (CLI) | payer OTHER, SELFPAY ==
[2023-12-28 11:54] VITALS: BMI 29.3
== END ==
PROVIDERS: Visit Provider Urology
DX: N20.1 Calculus of ureter (principal)
CPT/HCPCS: 87086

== ENCOUNTER 2024-09-15 11:09 | Day surgery (SDC) | payer OTHER, SELFPAY ==
[2023-12-28 11:54] VITALS: BMI 29.3
[2024-09-08 11:09] VITALS: BMI 25.0
[2024-09-15] VITALS (11 sets, daily range): BP systolic 83–140; BP diastolic 48–97; PULSE 80–112; RESP 11–18; TEMP 36.3–36.4; O2SAT 96–100; BMI 25.0
--- NOTE | 2024-09-15 | DI.RAD.S_ITS ---
PROCEDURE: XR ABDOMEN 1V INDICATIONS: RT STENT PLACEMENT TECHNIQUE: 3 intra-operative images acquired by the Urology service. COMPARISON: None. FINDINGS: Right renal collecting system is opacified with contrast without definite filling defects to suggest stone. Distal ureter is not imaged. A right ureteral stent is seen with distal pigtail in the expected location of the ureterovesical junction and proximal pigtail not clearly identified. IMPRESSION: Retrograde ureteral pyelogram as above Dictated by: Himanshu Cabello M.D. on 09/15/2024 at 14:22 Approved by: Himanshu Cabello M.D. on 09/15/2024 at 14:24
[2024-09-15] MEDS: LACTATED RINGERS 1,000 ML 21 ML IV ×2 (11:30→13:31)
--- NOTE | 2024-09-15 11:55 | PM.PREOP ---
Pre-operative Note COVID-19 COVID-19 status: Not tested Interval Note History & Physical reviewed/Exam performed by Physician: Yes Changes to H&P: No
[2024-09-15] MEDS: iopamidoL 30 ML VIAL INJ (12:42)
--- NOTE | 2024-09-15 12:44 | SUR.OPER ---
Lithotomy on padded OR bed, head on pillow, arms secured on padded arm boards at <90 degrees abduction. Legs secured in padded yellow fins stirrups.
--- NOTE | 2024-09-15 13:31 | PM.OP.1 ---
Procedure & Clinicians Procedure: Cystoscopy Right retrograde ureteropyelogram Right ureteroscopy Right ureteral stent placement Same procedure as scheduled: Yes Indications: 28 y/o M noted to have a 3mm left UVJ calculus on imaging that subsequently passed without him knowing it as his pelvic CT in Jul was unremarkable. He returns today to discuss a right ureteroscopy w/ laser lithotripsy as non-obstructing right nephroliths were noted on his CT report and per [place] regulations, he must be stone-free. Surgeon: Casey Cullen Click Yes if Unassisted: Yes Anesthesia Type: General Operative Notes Findings: Dae's plaques and submucosal calcifications in virtually every calyx, no nephroliths identified. Closure Type: not applicable Specimen(s): none sent Estimated Blood Loss (mL): 2 Blood products transfused: none Procedure in detail: Procedures: 1) Cystoscopy 2) Right retrograde ureteropyelogram 3) Right ureteroscopy 4) Right ureteral stent placement 5) Intraoperative interpretation of fluoroscopic images, < 1 hour, all images saved to PACS Indication: Patient was identified in the preoperative holding area and consent confirmed. He was then brought to the operating room where general anesthesia was induced.? He was placed in the low lithotomy position. He was then prepped and draped in the usual sterile fashion. A surgical timeout was conducted and all were in agreement. ?Access to the bladder was obtained via a 30 degree cystoscope.? Complete cystoscopy was then performed and no concerning bladder masses or lesions were appreciated.? Bilateral ureteral orifices were easily identified and noted to be orthotopic in nature.? The right ureteral orifice was then easily cannulated using a 5Fr ureteral catheter. A 0.035 sensor tip ureteral guidewire was advanced through the ureteral catheter and into the right renal pelvis.? A 11/13Fr ureteral access sheath was then advanced over the ureteral guidewire and into the proximal right ureter.? The ureteral guidewire and inner obturator were then removed.? The flexible ureteroscope was then advanced through the ureteral access sheath and into the right renal collecting system. Complete pyeloscopy was performed and Dae's plaques and submucosal calfications were noted in virtually every calyx, however, no nephroliths were identified. A retrograde pyelogram was then performed which noted no contrast extravasation.? The ureteral guidewire was then readvanced through the ureteroscope and into the right renal pelvis.? The ureter was then directly visualized upon removal of the ureteroscope and ureteral access sheath and noted to be stone free.? The cystoscope was then backloaded over the ureteral guidewire and advanced into the bladder.? A 6Fr multi-length JJ ureteral stent with strings was then advanced over the ureteral guidewire.? Upon removal of the guidewire, a good curl was noted within the right renal pelvis upon fluoroscopy and visually within the bladder.? The bladder was then drained and the cystoscope was removed.? Anesthesia was reversed, he was extubated in the OR and transferred to the PACU in stable condition for recovery. Complications: none Post-operative Condition: stable Disposition: PACU Plan for aftercare: Discharge home from PACU. Return to Urology clinic in 10 weeks to review a RBUS that will be performed roughly 8 weeks after his procedure to evaluate for residual right hydronephrosis.
--- NOTE | 2024-09-15 13:49 | SUR.PHASEI ---
Patient voided approximately 100 mls bloody urine to urinal. String to penis noted and intact.
[2024-09-15] MEDS: PHENAZOPYRIDINE 100 MG TABLET 200 MG PO (13:52)
== END 2024-09-15 14:20 | disposition home or self-care (01) ==
PROVIDERS: Referring Provider Urology; Visit Provider Urology
PROC: 0TF68ZZ Fragmentation in Right Ureter, Via Natural or Artificial Opening Endoscopic (ICD-10-PCS; CPT 52353; principal; 2024-09-15 12:30)
DX: N20.0 Calculus of kidney (principal)
CPT/HCPCS: 52356; 74018; 76000; 82962; J0690; J1100; J1885; J2250; J2405; J2704; J3010; Q9967

== ENCOUNTER 2024-09-21 22:41 | Emergency (ER) | payer OTHER, SELFPAY ==
[2023-12-28 11:54] VITALS: BMI 29.3
[2024-09-21 22:47] VITALS: BP 127/76; PULSE 75; RESP 16; TEMP 37.2; O2SAT 98; BMI 25.5
[2024-09-21 23:08] LABS: Appearance Urine UA CLOUDY; Color Urine UA RED; Glucose Urine UA NEGATIVE (Negative); Leukocyte Esterase Urine UA NEGATIVE (NEGATIVE); Occult Blood Urine UA 3+ (Negative); Protein Urine UA 3+ (Negative); Specific Gravity Urine UA 1.025 (1.000-1.035)
[2024-09-21 23:10] LABS: Bilirubin Urine UA Negative (NEGATIVE); Ketones Urine UA NEGATIVE (NEGATIVE); Nitrite Urine UA NEGATIVE (Negative)
[2024-09-21 23:11] LABS: Urobilinogen Urine UA 0.2 E.U./dL (0.2)
[2024-09-21 23:12] LABS: Bacteria Urine Occasional (0-1); Culture Indicated Urine Cult Not Indicated; Mucus Urine 1+ (Negative); RBC Urine >100/HPF (0-5/HPF); Squamous Epithelial Cell Urine 0-1 /HPF (0-5/HPF); Urine Volume 10mL (spun); WBC Urine 1-5/HPF (0-5/HPF)
--- NOTE | 2024-09-21 23:17 | DI.CT.S_ITS ---
PROCEDURE: CT KIDNEY URETER BLADDER (KUB) INDICATIONS: flan pain eval for stone TECHNIQUE: Axial sections were acquired from the lung bases to the pubic symphysis. Coronal and sagittal reformats were performed. For radiation dose reduction, the following was used: automated exposure control, adjustment of mA and/or kV according to patient size. COMPARISON: [facility], CT, CT KIDNEY URETER BLADDER (KUB), 07/05/2024, 21:24. [facility], CT, CT ABDOMEN PELVIS WO CON, 07/12/2024, 14:42. FINDINGS: Image quality: Diagnostic. Lower Chest: No significant findings. URINARY: Right Kidney: No stones. Moderate hydronephrosis. Right Ureter: No stones. Moderate hydroureter. Left Kidney: No stones or hydronephrosis. Left Ureter: No hydroureter. Bladder: Normal wall thickness. No stones. ABDOMEN: Liver: No contour-deforming solid mass. Gallbladder: No radiopaque gallstones or wall thickening. Biliary ducts: No biliary dilation. Pancreas: No ductal dilation. Spleen: Size is within normal limits. Adrenal Glands: No adrenal nodules. Stomach and Bowel: Normal colonic caliber, without significant wall thickening. Peritoneum: No abnormal intraperitoneal fluid. No free air. Ventral Wall: No hernia. Abdominal Nodes: No enlarged retroperitoneal or mesenteric lymph nodes. Vessels: Aorta and inferior vena cava are normal in size. PELVIS: Pelvic Organs: Unremarkable. Pelvic Nodes: Unremarkable. Miscellaneous: No inguinal hernias are seen. Bones: Unremarkable. IMPRESSION: Moderate right hydronephrosis and hydroureter. No visualized stone. Recently passed stone cannot be excluded. Dictated by: Gisella Ledesma M.D. on 09/22/2024 at 0:14 Approved by: Gisella Ledesma M.D. on 09/22/2024 at 0:16
[2024-09-22 00:16] VITALS: BP 135/81; PULSE 85; RESP 17; TEMP 37.2; O2SAT 98
[2024-09-22 00:20] VITALS: PULSE 88; O2SAT 99
[2024-09-22] MEDS: KETOROLAC 30 MG/ML VIAL 15 MG IV (00:28)
[2024-09-22] MEDS: ONDANSETRON 4 MG/2 ML INJ IV (00:28)
--- NOTE | 2024-09-22 00:43 | ED.GENADULT ---
HPI - General Adult General Chief complaint: Urogenital-Male Stated complaint: kidney pain Time Seen by Provider: 09/21/24 23:17 Source: patient Mode of arrival: Ambulatory History of Present Illness HPI narrative: Patient was a 28-year-old male. Recently had a ureteral stent placed with subsequent removal. Removal was earlier this week. He was seen at an outside facility approximately 24 hours ago. Was diagnosed with a urinary tract infection was given a dose of antibiotics in the emergency department. Was given a prescription for antibiotics but he was not pick those antibiotics up yet. He was here for evaluation of right-sided kidney pain, blood in his urine, nausea and vomiting. No fevers. He attempted to contact the urologist office today but has not received a call back. Related Data Home Medications Medication Instructions Recorded Confirmed escitalopram oxalate 10 mg tablet 10 mg PO DAILY 08/18/24 09/13/24 (Lexapro) ferrous gluconate 240 mg (27 mg 240 mg PO DAILY 09/13/24 09/13/24 iron) tablet potassium citrate 10 mEq (1,080 10 meq PO TID 09/13/24 09/13/24 mg) tablet,extended release Previous Rx's Medication Instructions Recorded oxycodone 5 mg tablet 5 mg PO Q8H PRN pain (scale score 09/15/24 7-10) #7 tabs tamsulosin 0.4 mg capsule 0.4 mg PO DAILY #7 caps 09/15/24 Allergies Allergy/AdvReac Type Severity Reaction Status Date / Time No Known Drug Allergies Allergy Verified 09/15/24 11:19 Review of Systems Review of Systems ROS Unobtainable: All systems reviewed & are unremarkable except as noted in HPI and below Patient History Medical History Depression Anemia Iron deficiency anemia GERD (gastroesophageal reflux disease) Surgical History Hx of circumcision H/O hernia repair History of appendectomy History of esophagogastroduodenoscopy (EGD) Family History Grandfather Cancer Social History marital status: number of children: 1 household members: spouse, children and friend(s) occupational status: employed leisure activities: exercise Smoking Status: Former smoker Tobacco: How many years used: 3 alcohol intake: never Type(s) of exercise: walking frequency: 5-6 times per week Smoking Status: Former smoker tobacco type: vaping alcohol intake frequency: holidays/special occasions only Exam Initial Vital Signs Initial Vital Signs: Vital Signs Temperature 98.9 F 09/21/24 22:47 Pulse Rate 75 09/21/24 22:47 Respiratory Rate 16 09/21/24 22:47 Blood Pressure 127/76 09/21/24 22:47 Pulse Oximetry 98 09/21/24 22:47 Oxygen Delivery Method Room Air 09/21/24 22:47 Const General: cooperative, comfortable and No ill appearing HENMT Head: normal to inspection Resp Effort & Inspection: normal respiratory effort Cardio Rate: regular rate GI Inspection: normal to inspection and non-distended Neuro General: patient alert and patient awake Extrem General: normal to inspection Course Orders Ordered: ED Orders 09/21/24 21:55 Urinalysis and Microscopic Stat 09/21/24 23:17 CT kidney ureter bladder (KUB) Stat Discontinued Medications Hydrocodone Bitart/Acetaminophen (Hydrocodone/Acet 5/325 Tablet) 1 tab PO NOW ONE Stop: 09/22/24 00:58 Last Admin: 09/22/24 01:05 Dose: 1 tab Documented By: QUEENIE Ceftriaxone Sodium 1,000 mg/ (Sodium Chloride) 100 mls @ 200 mls/hr IV NOW ONE Stop: 09/22/24 00:45 Last Infusion: 09/22/24 01:29 Dose: Infused Documented By: Admin: 09/22/24 00:56 Dose: 200 mls/hr Documented By: QUEENIE Sodium Chloride (Normal Saline 0.9%) 500 mls @ 1,000 mls/hr IV BOLUS ONE Stop: 09/22/24 01:26 Last Infusion: 09/22/24 01:44 Dose: Infused Documented By: Admin: 09/22/24 01:05 Dose: 1,000 mls/hr Documented By: QUEENIE Ketorolac Tromethamine (Ketorolac 30 Mg/Ml Vial) 15 mg IV NOW ONE Stop: 09/22/24 00:17 Last Admin: 09/22/24 00:28 Dose: 15 mg Documented By: QUEENIE Ondansetron HCl (Ondansetron 4 Mg/2 Ml Inj) 4 mg IV NOW ONE Stop: 09/22/24 00:17 Last Admin: 09/22/24 00:28 Dose: 4 mg Documented By: QUEENIE Ondansetron HCl (Ondansetron 4 Mg Odt Prepack) 1 bottle MISC DIRECTED ONE Stop: 09/22/24 00:45 Last Admin: 09/22/24 01:43 Dose: 1 bottle Documented By: QUEENIE Oxycodone/Acetaminophen (Oxycodone/Apap 5/325 Prepack) 1 bottle MISC DIRECTED ONE Stop: 09/22/24 00:45 Last Admin: 09/22/24 01:43 Dose: 1 bottle Documented By: QUEENIE Vital Signs Vital signs: Vital Signs - 8 hr 09/21/24 22:47 09/22/24 00:16 09/22/24 00:20 Temperature 98.9 F 98.9 F Pulse Rate 75 85 88 Respiratory Rate 16 17 Blood Pressure 127/76 135/81 Pulse Oximetry 98 98 99 Oxygen Delivery Method Room Air Room Air 09/22/24 01:47 09/22/24 01:48 09/22/24 01:48 Temperature Pulse Rate 81 82 Respiratory Rate Blood Pressure 135/72 Pulse Oximetry 95 99 Oxygen Delivery Method 09/22/24 01:49 Temperature Pulse Rate 83 Respiratory Rate 17 Blood Pressure 135/72 Pulse Oximetry 98 Oxygen Delivery Method Room Air Medical Decision Making Lab Data Lab results reviewed: Yes I reviewed the patient's lab results. Labs: Lab Results 09/21/24 Range/Units 21:55 Urine Color Red Urine Appearance Cloudy Urine pH 7.0 (4.5-8.0) Ur Specific [place] 1.025 (1.000-1.035) Urine Protein 3+ H (Negative) Urine Glucose (UA) Negative (Negative) g/dL Urine Ketones Negative (NEGATIVE) Urine Occult Blood 3+ H (Negative) Urine Nitrate Negative (Negative) Urine Bilirubin Negative (NEGATIVE) Urine Urobilinogen 0.2 (0.2) E.U./dL Ur Leukocyte Esterase Negative (NEGATIVE) Urine RBC >100/hpf H (0-5/HPF) Urine WBC 1-5/hpf (0-5/HPF) Ur Squamous Epith Cells 0-1 /hpf (0-5/HPF) Urine Bacteria Occasional (0-1) (None) Urine Mucus 1+ H (Negative) Ur Culture Indicated? Cult not indicated Vol Urine Centrifuged 10ml (spun) Imaging Data CT scan - abdomen/pelvis: Radiologist's Impression: PROCEDURE: CT KIDNEY URETER BLADDER (KUB) INDICATIONS: flan pain eval for stone TECHNIQUE: Axial sections were acquired from the lung bases to the pubic symphysis. Coronal and sagittal reformats were performed. For radiation dose reduction, the following was used: automated exposure control, adjustment of mA and/or kV according to patient size. COMPARISON: [facility], CT, CT KIDNEY URETER BLADDER (KUB), 07/05/2024, 21:24. [facility], CT, CT ABDOMEN PELVIS WO CON, 07/12/2024, 14:42. FINDINGS: Image quality: Diagnostic. Lower Chest: No significant findings. URINARY: Right Kidney: No stones. Moderate hydronephrosis. Right Ureter: No stones. Moderate hydroureter. Left Kidney: No stones or hydronephrosis. Left Ureter: No hydroureter. Bladder: Normal wall thickness. No stones. ABDOMEN: Liver: No contour-deforming solid mass. Gallbladder: No radiopaque gallstones or wall thickening. Biliary ducts: No biliary dilation. Pancreas: No ductal dilation. Spleen: Size is within normal limits. Adrenal Glands: No adrenal nodules. Stomach and Bowel: Normal colonic caliber, without significant wall thickening. Peritoneum: No abnormal intraperitoneal fluid. No free air. Ventral Wall: No hernia. Abdominal Nodes: No enlarged retroperitoneal or mesenteric lymph nodes. Vessels: Aorta and inferior vena cava are normal in size. PELVIS: Pelvic Organs: Unremarkable. Pelvic Nodes: Unremarkable. Miscellaneous: No inguinal hernias are seen. Bones: Unremarkable. IMPRESSION: Moderate right hydronephrosis and hydroureter. No visualized stone. Recently passed stone cannot be excluded. MDM Narrative Medical decision making narrative: Patient already has a prescription for antibiotics for a diagnosis of urinary tract infection. 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 A CT scan today shows no signs of kidney stone. He does have swelling along the ureter and hydro which I suspect is related to his stent placement and then subsequent removal. There was no indication for emergent urologic consultation. I recommended that he contact the urologist office once again to discuss follow-up. Will send home with symptom control. 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 Use the pain and nausea medication as directed as well. Sure that you were increasing your fluid intake. When the office is open later today contact the urology office for a follow-up. Return to the emergency department for new symptoms. Prescriptions: No Action tamsulosin 0.4 mg capsule 0.4 mg PO DAILY Qty: 7 0RF oxycodone 5 mg tablet 5 mg PO Q8H PRN (Reason: pain (scale score 7-10)) Qty: 7 0RF escitalopram oxalate [Lexapro] 10 mg tablet 10 mg PO DAILY potassium citrate 10 mEq (1,080 mg) tablet extended release 10 meq PO TID ferrous gluconate 240 mg (27 mg iron) tablet 240 mg PO DAILY Referrals: ProviderDari [Primary Care Provider] - Stand Alone Forms: Patient Portal/API/Survey, Work Release Note
[2024-09-22] MEDS: cefTRIAXone 1,000 MG in SODIUM CHLORIDE 0.9% 100 ML 200 MG IV (00:56)
[2024-09-22] MEDS: SODIUM CHLORIDE 0.9% 500 ML 1000 ML IV (01:05)
[2024-09-22] MEDS: HYDROCODONE/ACET 5/325 TABLET 1 TAB PO (01:05)
[2024-09-22] MEDS: ONDANSETRON 4 MG ODT PREPACK 1 BOTTLE MISC (01:43)
[2024-09-22] MEDS: OXYCODONE/APAP 5/325 PREPACK 1 BOTTLE MISC (01:43)
[2024-09-22 01:47] VITALS: PULSE 81; O2SAT 95
[2024-09-22 01:48] VITALS: BP 135/72; PULSE 82; O2SAT 99
[2024-09-22 01:49] VITALS: BP 135/72; PULSE 83; RESP 17; O2SAT 98
== END 2024-09-22 02:08 | disposition home or self-care (01) ==
PROVIDERS: Emergency Provider Emergency Medicine
DX: N39.0 Urinary tract infection, site not specified (principal); R31.9 Hematuria, unspecified; R11.2 Nausea with vomiting, unspecified
CPT/HCPCS: 74176; 81001; 96365; 96375; 99284; J0696; J1885; J2405